=== PATIENT | female | born 1980 | race Caucasian/White ===

== ENCOUNTER 2016-09-25 01:40 | Emergency (ER) | payer OTHER ==
[~2016-09-25] VITALS: Ht 167.6 cm; Wt 57.7 kg
[~2016-09-25 01:40] MED LIST: MTR600X PO; OXYC5TAB PO; PRENTAB26 PO; RANI300T2 PO
[2016-09-25 01:50] VITALS: TEMP 36.7; Ht 167.6 cm; Wt 57.7 kg
[2016-09-25] MEDS ORDERED: MULT-506 PO (02:14)
[2016-09-25] MEDS ORDERED: PROG100S PV (02:17)
[2016-09-25] MEDS ORDERED: SODIUM CHLORIDE 0.9% 1000ML 1,000 ML IV STA (02:25)
--- NOTE | 2016-09-25 02:59 | EMERGENCY ROOM VISIT NOTE ---
History Report prepared by Yolis: Alize Palomino Under the Supervision of: Dr. Radha Nix M.D. First contact with patient: 02:12 Chief Complaint: ABDOMINAL PAIN Stated Complaint: SEVERE ABD PAIN History of Present Illness The patient is a 35 year old female who presents to the Emergency Room with complaints of intermittent, worsening upper abdominal pain starting this morning. The pain woke her up from sleep. She describes the pain as an ache. She reports indigestion. The patient had a vomiting episode this morning which she suspects was from the pain. She has sharp pain with deep breathing in the upper abdomen and lower chest. She also reports abdominal distention. She also complains of left shoulder pain. She denies eating any spicy foods but recently ate some fatty foods. She denies fevers, chills, urinary symptoms, or any other complaints. She has a history of ectopic but denies any similar symptoms today. She had an IVF 5 days ago. She was started on Lovenox prophylactic for 7 days. She has a history of factor V. She denies any history of gallbladder disease, cholecystectomy, or appendectomy. She has a family history of pulmonary embolism but denies any personal history of blood clots. Source of History: patient Onset: this morning Position: abdomen (upper) Quality: ache Timing: intermittent, worsening Associated Symptoms: + vomiting, No fevers, No chills, No urinary symptoms Review of Systems See HPI for pertinent positives & negatives. A total of 10 systems reviewed and were otherwise negative. Past Medical & Surgical Medical Problems: (1) Factor V Leiden (2) Hemoperitoneum due to rupture of right tubal ectopic (3) Pelvic pain Surgical Problems: (1) History of delivery Family History Cancer FH: pulmonary embolism Gallbladder disease Hypertension Seizures Social History Smoking Status: Never Smoker Alcohol Use: none Drug Use: none Marital Status: Housing Status: lives with family Occupation Status: employed Current/Historical Medications Scheduled Enoxaparin (Lovenox), 40 MG SQ DAILY Estradiol (Estradiol), 2 MG PO BID Multivitamin (Multivitamin), 1 TAB PO DAILY Progesterone (Vaginal) (Endometrin), 1 SUPP PV TID Ranitidine Hcl (Zantac), 300 MG PO BID Scheduled PRN Hydrocodone/Acetaminophen 5MG/325MG ([place] 5MG/325MG), 1 TABLET PO Q6 PRN for Pain Allergies Coded Allergies: No Known Allergies (Unverified , 09/25/16) Physical Exam Vital Signs Date Time Temp Pulse Resp B/P (MAP) Pulse Ox O2 Delivery O2 Flow Rate FiO2 09/25/16 07:12 72 20 116/60 98 Room Air 09/25/16 06:42 75 16 95/52 98 Room Air 09/25/16 05:29 79 16 103/63 99 Room Air 09/25/16 04:30 78 16 95/54 97 Room Air 09/25/16 01:50 36.7 90 18 116/66 95 Room Air Physical Exam Vital signs reviewed. General: Well-appearing, in no significant distress. HEENT: No scleral icterus, PERRLA, neck supple. Atraumatic. Cardiovascular: Regular rate and rhythm, no extra sounds. Pulmonary: Clear to auscultation bilaterally, normal work of breathing. Abdomen: Soft, tenderness to the right upper quadrant, positive rebound, positive guarding, nondistended, positive bowel sounds. Musculoskeletal: Atraumatic, no peripheral edema. Neurologic: Patient awake alert and oriented x 3 Skin: Warm, dry, no rash Medical Decision & Procedures ER Provider Diagnostic Interpretation: CT results as stated below per my review and radiologist interpretation: US OB 1st TRIMESTER Nonspecific perihepatic free fluid. Sludge in a distended gallbladder. No gallbladder wall thickening. CBD is at the upper limits of normal in caliber measuring approximately 4-5 mm. No right renal hydronephrosis. Pancreas is unremarkable. Radiologist: Dominguez Pinon MD ADDENDUM- Added by Dominguez Pinon MD. On 09/25/2016 4:56 am (-0:700) Please note, initial report was typographically error. The following is the report for the obstetrical ultrasound. No gestational sac or intrauterine identified at this time. Blood flow is seen in both ovaries. There are multiple complex cystic masses in each ovary. The largest on the right measures 2 cm and the largest on the left measures 3.7 cm. This is nonspecific. They could represent hemorrhagic cyst. Follow-up in 4 weeks to ensure resolution and excluse possibility of malignancy. Free fluid in the pelvis and upper abdomen. May be due to physiologic changes. May be due to underlying infection. This is a nonspecific finding. Laboratory Results 09/25/16 02:40 Red Blood Count 4.78, Mean Corpuscular Volume 86.0, Mean Corpuscular Hemoglobin 30.1, Mean Corpuscular Hemoglobin Concent 35.0, Mean Platelet Volume 10.3, Neutrophils (%) (Auto) 77.6, Lymphocytes (%) (Auto) 15.7, Monocytes (%) (Auto) 5.3, Eosinophils (%) (Auto) 0.7, Basophils (%) (Auto) 0.2, Neutrophils # (Auto) 10.04, Lymphocytes # (Auto) 2.03, Monocytes # (Auto) 0.68, Eosinophils # (Auto) 0.09, Basophils # (Auto) 0.03 09/25/16 06:19 09/25/16 02:40 Test 09/25/16 00:00 09/25/16 02:40 Urine Color YELLOW Urine Appearance CLOUDY (CLEAR) Urine pH 5.5 (4.5-7.5) Urine Specific Secor 1.024 (1.000-1.030) Urine Protein NEG (NEG) Urine Glucose (UA) NEG (NEG) Urine Ketones 1+ (NEG) Urine Occult Blood NEG (NEG) Urine Nitrite NEG (NEG) Urine Bilirubin NEG (NEG) Urine Urobilinogen NEG (NEG) Urine Leukocyte Esterase NEG (NEG) Urine WBC (Auto) 1-5 /hpf (0-5) Urine RBC (Auto) 10-30 /hpf (0-4) Urine Hyaline Casts (Auto) 1-5 /lpf (0-5) Urine Epithelial Cells (Auto) >30 /lpf (0-5) Urine Bacteria (Auto) NEG (NEG) Urine Crystals TALC (NONE PRSENT) White Blood Count 12.93 K/uL (4.8-10.8) Red Blood Count 4.78 M/uL (4.2-5.4) Hemoglobin 14.4 g/dL (12.0-16.0) Hematocrit 41.1 % (37-47) Mean Corpuscular Volume 86.0 fL (80-100) Mean Corpuscular Hemoglobin 30.1 pg (25-34) Mean Corpuscular Hemoglobin Concent 35.0 g/dl (32-36) Platelet Count 236 K/uL (130-400) Mean Platelet Volume 10.3 fL (7.4-10.4) Neutrophils (%) (Auto) 77.6 % Lymphocytes (%) (Auto) 15.7 % Monocytes (%) (Auto) 5.3 % Eosinophils (%) (Auto) 0.7 % Basophils (%) (Auto) 0.2 % Neutrophils # (Auto) 10.04 K/uL (1.4-6.5) Lymphocytes # (Auto) 2.03 K/uL (1.2-3.4) Monocytes # (Auto) 0.68 K/uL (0.11-0.59) Eosinophils # (Auto) 0.09 K/uL (0-0.5) Basophils # (Auto) 0.03 K/uL (0-0.2) RDW Standard Deviation 38.3 fL (36.4-46.3) RDW Coefficient of Variation 12.3 % (11.5-14.5) Immature Granulocyte % (Auto) 0.5 % Immature Granulocyte # (Auto) 0.06 K/uL (0.00-0.02) Prothrombin Time 10.5 SECONDS (9.0-12.0) Prothromb Time International Ratio 1.0 (0.9-1.1) Activated Partial Thromboplast Time 27.3 SECONDS (21.0-31.0) Partial Thromboplastin Ratio 1.1 Anion Gap 8.0 mmol/L (3-11) Est Creatinine Clear Calc Drug Dose 111.1 ml/min Estimated GFR () 134.3 Estimated GFR (Non- 115.8 BUN/Creatinine Ratio 21.6 (10-20) Calcium Level 8.6 mg/dl (8.5-10.1) Total Bilirubin 0.5 mg/dl (0.2-1) Direct Bilirubin 0.1 mg/dl (0-0.2) Aspartate Amino Transf (AST/SGOT) 10 U/L (15-37) Alanine Aminotransferase (ALT/SGPT) 17 U/L (12-78) Alkaline Phosphatase 47 U/L (45-117) Total Protein 6.6 gm/dl (6.4-8.2) Albumin 3.2 gm/dl (3.4-5.0) Laboratory results per my review. Medications Administered Medications (Trade) Dose Ordered Sig/Marquez Route Start Time Stop Time Status Last Admin Dose Admin Sodium Chloride 1,000 ml @ 999 mls/hr Q1H1M STAT IV 09/25/16 02:25 09/25/16 03:25 DC 09/25/16 02:55 999 MLS/HR Acetaminophen/ Hydrocodone Bitart ([place] 5/325mg Home Pack) 1 homepack UD ONCE PO 09/25/16 07:00 09/25/16 07:01 DC 09/25/16 07:12 1 HOMEPACK ED Course 0212: Past medical records reviewed. The patient was evaluated in room B04B. A complete history and physical examination was performed. 0225: Sodium Chloride 1000 ml @ 999 mls/hr IV 0439: I discussed the patient's case with Dr. Joshi, OB-TELE TECH with [facility]. 0700: Hydrocodone Bitart/Acetaminophen 1 home pack PO. Upon reevaluation, the patient appeared to have improvement of her symptoms. I discussed findings with her. She verbalized agreement of the treatment plan. The patient was discharged home. Medical Decision Medication Reconciliation: I attest that I have personally reviewed the patient' s current medication list. Blood Pressure Screening: Patient was found to have normal blood pressure on screening and does not require follow-up. Differential diagnosis: Etiologies such as appendicitis, diverticulitis, PUD, biliary pathology, UTI, pancreatitis, obstruction, mesenteric ischemia, aortic pathology, infections, inflammatory bowel disease, renal colic, ectopic , as well as others were entertained. This patient was evaluated and appeared to be in no significant distress. Physical examination reveals tenderness along the right upper quadrant. Ultrasounds of the right upper quadrant and pelvis were performed and reveal a moderate amount of free fluid in the abdomen. Laboratory work is fairly unrevealing. The patient was hydrated with normal saline solution. She denied the need for any analgesia at this time. H&H is trending downward however I feel this is likely dilutional. The patient had her eggs harvested 5 days prior to the implantation. I feel this is likely ovarian hyperstimulation syndrome. I do not feel that the patient is likely to have hemoperitoneum. Patient's vital signs have remained stable, her blood pressures do run low. She was informed of the findings. She was given a short prescription for [place] to be used as needed sparingly. She'll follow-up with [facility]. I did review the case with Dr. Joshi. She has requested that the patient contact [facility] first thing in the morning. They will need to see her in follow-up. She will return to the ER for worsening of symptoms or any medical concerns. Consults Time Called: [phone] Consulting Physician: Dr. Joshi, OB-TELE TECH with [facility] Returned Call: [phone] I discussed the patient's case with Dr. Joshi, OB-TELE TECH with [facility]. Impression Primary Impression: Ovarian hyperstimulation syndrome Scribe Attestation The scribe's documentation has been prepared under my direction and personally reviewed by me in its entirety. I confirm that the note above accurately reflects all work, treatment, procedures, and medical decision making performed by me. Departure Information Dispostion Home / Self-Care Prescriptions Hydrocodone/Acetaminophen 5MG/325MG ([place] 5MG/325MG) Tab 1 TABLET PO Q6 Y for Pain, #14 TAB Prov: Radha Nix M.D. 09/25/16 Referrals No Doctor, Assigned (PCP) Josiah Daniels M.D. Forms Call Back Authorization, HOME CARE DOCUMENTATION FORM, IMPORTANT VISIT INFORMATION Patient Instructions [facility] Additional Instructions Diagnosis: Ovarian hyperstimulation syndrome. [place] one tablet every 6 hours as needed for severe pain. Drink plenty of clear fluids. Contact [facility] first thing this morning for further management. If you are unable to see them within the next several days, please contact your local RECYCLING ASSISTANT, Dr. Ortega for short-term follow-up. Return to the emergency department for worsening of symptoms or any medical concerns.
[2016-09-25 03:26] LABS: BASO % 0.2 %; BASO ABS # 0.03 K/uL (0-0.2); COMPLETE YES; EOS % 0.7 %; HEMATOCRIT 41.1 % (37-47); IG% 0.5 %; LYMPH % 15.7 %; LYMPH ABS # 2.03 K/uL (1.2-3.4); MEAN CORPUSCULAR HEMOGLOBIN 30.1 pg (25-34); MEAN PLATELET VOLUME 10.3 fL (7.4-10.4); MONO % 5.3 %; NEUT % 77.6 %; PLATELET COUNT 236 K/uL (130-400); RED BLOOD COUNT 4.78 M/uL (4.2-5.4); WHITE BLOOD COUNT 12.93 K/uL (4.8-10.8)
[2016-09-25 03:43] LABS: BUN/CREATININE RATIO 21.6 (10-20); CREATININE 0.65 mg/dl (0.60-1.20); POTASSIUM 3.8 mmol/L (3.5-5.1)
[2016-09-25 03:44] LABS: PARTIAL THROMBOPLASTIN RATIO 1.1; PROTHROMBIN TIME (PATIENT) 10.5 SECONDS (9.0-12.0)
[2016-09-25 03:54] LABS: CALCIUM 8.6 mg/dl (8.5-10.1)
[2016-09-25 04:45] LABS: URINE APPEARANCE CLOUDY (CLEAR); URINE BILIRUBIN NEG (NEG); URINE COLOR YELLOW; URINE EPITHELIAL CELL AUTO >30 /lpf (0-5); URINE NITRITE NEG (NEG); URINE PH 5.5 (4.5-7.5); URINE SPECIFIC GRAVITY 1.024 (1.000-1.030); UROBILINOGEN NEG (NEG); ZZUR CULT IF INDIC CLEAN CATCH NO
[2016-09-25 04:51] LABS: MANUAL MICROSCOPIC REQUIRED? NO; REVIEW REQ? YES
[2016-09-25 06:28] LABS: HEMATOCRIT 36.5 % (37-47)
--- NOTE | 2016-09-25 06:56 | DIAGNOSTIC IMAGING REPORT ---
BILIARY ULTRASOUND CLINICAL HISTORY: RUQ abd pain, tender COMPARISON STUDY: No previous studies for comparison. FINDINGS: The pancreas appears sonographically normal. The liver appears sonographically normal. No gallstones are visualized. There is minimal sludge in the gallbladder.. There is no ductal dilatation. The common bile duct measures 4.6 cm. There is perihepatic fluid. There is no right-sided hydronephrosis. IMPRESSION: 1. Minimal sludge within the gallbladder 2. Unexplained free fluid surrounding the liver 3. No evidence of ductal dilatation. Electronically signed by: Lopez Quigley M.D. 09/25/2016 6:55 AM Dictated Date/Time: 09/25/2016 6:53 AM
[2016-09-25] MEDS ORDERED: HYDR-5688 PO (06:57)
[2016-09-25] MEDS ORDERED: NORCO 5/325MG HOME PACK PO ONE (07:00)
[2016-09-25 07:12] VITALS: BP 116/60; PULSE 72; O2SAT 98
--- NOTE | 2016-09-25 07:17 | DIAGNOSTIC IMAGING REPORT ---
PELVIC ULTRASOUND CLINICAL HISTORY: recent IVF, pelvis pain COMPARISON STUDY: Pelvic ultrasound 05/06/2015. FINDINGS: The uterus is retroflexed. The endometrial stripe measures up to 2 cm in thickness. No intrauterine gestational sac is identified. Small to moderate amount pelvic free fluid. Both ovaries are enlarged and contain multiple complex and simple cysts. However, there is normal color-flow within the bilateral ovaries. The right ovary measures 5.7 x 5.6 x 3.0 cm and the left ovary measures 8.3 x 9.6 x 6.6 cm. Largest complex cyst is seen within the left ovary measures 3.7 cm. Fluid extends into the right upper quadrant. No additional adnexal masses identified. IMPRESSION: 1. Endometrial stripe measures 2 cm in thickness. No intrauterine gestational sac is identified. If the patient has a positive test, then this could represent an early intrauterine , nonvisualized ectopic , or recent spontaneous . Follow-up pelvic ultrasound and/or beta-hCG is recommended. 2. Enlarged ovaries containing multiple simple and complex cysts with a small to moderate amount of fluid within the abdomen and pelvis. This favors hyperstimulation ovarian syndrome. Electronically signed by: Steven Pichardo M.D. 09/25/2016 7:16 AM Dictated Date/Time: 09/25/2016 7:10 AM
[2016-11-02] MEDS ORDERED: ENOX40IN SQ (02:16)
[2016-11-02] MEDS ORDERED: ESTR2TAB PO (02:16)
== END 2016-09-25 07:19 | disposition home or self-care (01) ==
LOC: C.EDB 01:40
DX: N98.1 Hyperstimulation of ovaries (principal); M25.512 Pain in left shoulder; D68.51 Activated protein C resistance; Z80.9 Family history of malignant neoplasm, unspecified; Z82.49 Family history of ischemic heart disease and other diseases of the circulatory system; Z82.0 Family history of epilepsy and other diseases of the nervous system; Z79.899 Other long term (current) drug therapy

== ENCOUNTER 2016-10-12 16:25 | Emergency (ER) | payer OTHER ==
[~2016-10-12] VITALS: Ht 165.1 cm; Wt 60.1 kg
[~2016-10-12 16:25] MED LIST changes: +HYDR-5688 PO; -MTR600X PO; +MULT-506 PO; -OXYC5TAB PO; -PRENTAB26 PO; +PROG100S PV
[2016-10-12 16:36] VITALS: TEMP 36.9; Ht 165.1 cm; Wt 60.1 kg
[2016-10-12 19:00] VITALS: BP 131/66
--- NOTE | 2016-10-12 19:19 | EMERGENCY ROOM VISIT NOTE ---
History Report prepared by Yolis: Jessica Villa Under the Supervision of: Dr. Efrain Martinez D.O. First contact with patient: 18:55 Chief Complaint: REFERRED BY DOCTOR Stated Complaint: DR. JACOBO PT EVALUATED TO R/O PE - PAIN IN L LUNG History of Present Illness The patient is a 35 year old female who presents to the Emergency Room with complaints of intermittent sharp left sided abdominal pain beginning today. The patient states that she sent an email to the nurse at her PCPs office after the pain persisted. She notes that she was told to come in to the ED to rule out a PE. She reports that her pain is worsened with deep inhalation and sneezing. She notes that she is 6 weeks and had OHSS 2 weeks ago and had 1.5L of fluid drained vaginally. The patient denies any vaginal bleeding, vaginal pain, pelvic pain, shortness of breath, cough, fever, chills, and leg swelling. She states that she is on Lovenox and has a history of factor 5 Leiden. She notes that her father has a history of PE. Source of History: patient Onset: today Position: abdomen Quality: sharp Timing: intermittent Modifying Factors (Worsening): breathing, other (sneezing) Associated Symptoms: No fevers, No chills, No cough, No SOB Note: The patient denies any vaginal bleeding, vaginal pain, pelvic pain, and leg swelling. Review of Systems See HPI for pertinent positives & negatives. A total of 10 systems reviewed and were otherwise negative. Past Medical & Surgical Medical Problems: (1) Factor V Leiden (2) Hemoperitoneum due to rupture of right tubal ectopic (3) Pelvic pain Surgical Problems: (1) History of delivery Family History Cancer FH: pulmonary embolism Gallbladder disease Hypertension Seizures Social History Smoking Status: Never Smoker Alcohol Use: none Drug Use: none Marital Status: Housing Status: lives with family Occupation Status: employed Current/Historical Medications Scheduled Enoxaparin (Lovenox), 40 MG SQ DAILY Estradiol (Estradiol), 2 MG PO BID Multivit/Min/Iron/Fol Ac/Pren ( Vitamin), 1 TAB PO DAILY Progesterone (Vaginal) (Endometrin), 1 SUPP PV TID Allergies Coded Allergies: No Known Allergies (Unverified , 09/25/16) Physical Exam Vital Signs Date Time Temp Pulse Resp B/P (MAP) Pulse Ox O2 Delivery O2 Flow Rate FiO2 10/12/16 21:52 84 18 100 10/12/16 19:00 77 18 131/66 99 Room Air 10/12/16 16:36 36.9 97 20 117/67 93 Room Air Physical Exam GENERAL: Patient is awake, alert, and in no acute distress. Patient is resting comfortably and showing no signs of anxiety EYES: The conjunctivae are clear. The pupils are round and reactive. EARS, NOSE, MOUTH AND THROAT: The nose is without any evidence of any deformity. Mucous membranes are moist tongue is midline NECK: The neck is nontender and supple. RESPIRATORY: Normal respiratory effort is noted there is no evidence of wheezing rhonchi or rales CARDIOVASCULAR: Regular rate and rhythm noted there no murmurs rubs or gallops normal S1 normal S2 GASTROINTESTINAL: The abdomen is soft. Bowel sounds are present in all quadrants. Abdomen is nontender MUSCULOSKELETAL/EXTREMITIES: There is no evidence of gross deformity full range of motion is noted in the hips and shoulders SKIN: There is no obvious evidence of any rash. There are no petechiae, pallor or cyanosis noted. No calf tenderness was noted NEUROLOGIC: Patient is awake alert and oriented x3 Medical Decision & Procedures ER Provider Diagnostic Interpretation: Radiology results as stated below per my review and radiologist interpretation: CHEST ONE VIEW PORTABLE FINDINGS: The heart is normal in size. There is no failure. There is no focal pulmonary consolidation. There is no pneumothorax. There is a small right pleural effusion.[ IMPRESSION: Small right pleural effusion. No evidence of focal pulmonary consolidation Electronically signed by: Lopez Quigley M.D. 10/12/2016 7:30 PM Dictated Date/Time: 10/12/2016 7:29 PM ULTRASOUND VENOUS DOPPLER LWR EXT BILA FINDINGS: Real-time and color flow Doppler imaging were performed. Flow was seen within the femoral, popliteal and calf veins with no intraluminal thrombus demonstrated. The saphenous vein is patent. IMPRESSION: No evidence of lower extremity DVT. Electronically signed by: Lopez Quigley M.D. 10/12/2016 8:25 PM Dictated Date/Time: 10/12/2016 8:24 PM Laboratory Results 10/12/16 19:12 Red Blood Count 4.01, Mean Corpuscular Volume 88.3, Mean Corpuscular Hemoglobin 30.2, Mean Corpuscular Hemoglobin Concent 34.2, Mean Platelet Volume 9.4, Neutrophils (%) (Auto) 71.3, Lymphocytes (%) (Auto) 21.2, Monocytes (%) (Auto) 5.7, Eosinophils (%) (Auto) 1.0, Basophils (%) (Auto) 0.4, Neutrophils # (Auto) 8.13, Lymphocytes # (Auto) 2.41, Monocytes # (Auto) 0.65, Eosinophils # (Auto) 0.11, Basophils # (Auto) 0.04 10/12/16 19:12 Test 10/12/16 19:12 10/12/16 19:18 10/12/16 19:40 White Blood Count 11.39 K/uL (4.8-10.8) Red Blood Count 4.01 M/uL (4.2-5.4) Hemoglobin 12.1 g/dL (12.0-16.0) Hematocrit 35.4 % (37-47) Mean Corpuscular Volume 88.3 fL (80-100) Mean Corpuscular Hemoglobin 30.2 pg (25-34) Mean Corpuscular Hemoglobin Concent 34.2 g/dl (32-36) Platelet Count 280 K/uL (130-400) Mean Platelet Volume 9.4 fL (7.4-10.4) Neutrophils (%) (Auto) 71.3 % Lymphocytes (%) (Auto) 21.2 % Monocytes (%) (Auto) 5.7 % Eosinophils (%) (Auto) 1.0 % Basophils (%) (Auto) 0.4 % Neutrophils # (Auto) 8.13 K/uL (1.4-6.5) Lymphocytes # (Auto) 2.41 K/uL (1.2-3.4) Monocytes # (Auto) 0.65 K/uL (0.11-0.59) Eosinophils # (Auto) 0.11 K/uL (0-0.5) Basophils # (Auto) 0.04 K/uL (0-0.2) RDW Standard Deviation 39.5 fL (36.4-46.3) RDW Coefficient of Variation 12.2 % (11.5-14.5) Immature Granulocyte % (Auto) 0.4 % Immature Granulocyte # (Auto) 0.05 K/uL (0.00-0.02) Prothrombin Time 10.1 SECONDS (9.0-12.0) Prothromb Time International Ratio 0.9 (0.9-1.1) Activated Partial Thromboplast Time 26.9 SECONDS (21.0-31.0) Partial Thromboplastin Ratio 1.0 Anion Gap 7.0 mmol/L (3-11) Est Creatinine Clear Calc Drug Dose 127.4 ml/min Estimated GFR () 141.0 Estimated GFR (Non- 121.7 BUN/Creatinine Ratio 19.0 (10-20) Calcium Level 9.0 mg/dl (8.5-10.1) Total Bilirubin 0.2 mg/dl (0.2-1) Direct Bilirubin < 0.1 mg/dl (0-0.2) Aspartate Amino Transf (AST/SGOT) 16 U/L (15-37) Alanine Aminotransferase (ALT/SGPT) 45 U/L (12-78) Alkaline Phosphatase 84 U/L (45-117) Troponin I < 0.015 ng/ml (0-0.045) Total Protein 7.3 gm/dl (6.4-8.2) Albumin 3.5 gm/dl (3.4-5.0) Lipase 154 U/L (73-393) Bedside D-Dimer > 450 ng/mlFEU (0-450) Urine Color YELLOW Urine Appearance CLEAR (CLEAR) Urine pH 6.0 (4.5-7.5) Urine Specific [place] 1.021 (1.000-1.030) Urine Protein NEG (NEG) Urine Glucose (UA) NEG (NEG) Urine Ketones NEG (NEG) Urine Occult Blood NEG (NEG) Urine Nitrite NEG (NEG) Urine Bilirubin NEG (NEG) Urine Urobilinogen NEG (NEG) Urine Leukocyte Esterase NEG (NEG) Laboratory results per my review. Medications Administered Medications (Trade) Dose Ordered Sig/Marquez Route Start Time Stop Time Status Last Admin Dose Admin Enoxaparin Sodium (Lovenox Inj) 60 mg NOW ONCE SQ 10/12/16 21:15 10/12/16 21:16 DC 10/12/16 21:15 60 MG Enoxaparin Sodium (Lovenox Inj) 60 mg NOW ONCE SQ 10/12/16 21:30 10/12/16 21:31 DC 10/12/16 21:30 60 MG ECG Indication: chest pain Rate (beats per minute): 71 Rhythm: normal sinus Findings: no ectopy, other (no ST segment abnormalities) Comparison ECG Date: no prior available ED Course 1854: The patient was evaluated in room B12B. A complete history and physical examination were performed. 2107: I discussed the patient's case with Dr. Crain who is on for Dr. Gamboa. He recommended CT of the chest. 2114: Lovenox Inj 60mg SQ. 2129: Lovenox Inj 60mg SQ. 2129: I reevaluated the patient. She refused CT. 2134: Upon reevaluation, the patient is doing well. I discussed the results and treatment plan with the patient. She verbalized agreement of the treatment plan. The patient was discharged home. Medical Decision Differential diagnosis: Etiologies such as cardiac ischemia, aortic dissection, pulmonary embolism, pneumonia, pneumothorax, musculoskeletal, infections, pericarditis, myocarditis , esophageal rupture, gastrointestinal, as well as others were entertained. Medication Reconciliation: I attest that I have personally reviewed the patient' s current medications list. Patient was found to have a slightly elevated blood pressure due to circumstances. I do not believe that the patient requires hypertension monitoring. The patient is a 35-year-old female who presented to the emergency department for an evaluation of possible pulmonary embolism. The patient was recent diagnosis with hyperstimulation syndrome. She had fertility drugs which resulted in a twin gestation at approximate 6 weeks at this time. She started having left-sided pleuritic chest pain recently. She called her primary DIRECTOR CORPORATE SECURITY physician and was told to come to the emergency department for further evaluation. The patient had an elevated d-dimer but she is not tachycardic or hypoxic. Her Dopplers of the lower extremity do not reveal any signs of definite venous thromboembolic disease. The patient has significant risk factors for pulmonary embolism and at this time I have recommended that she have a CT the chest to rule out pulmonary embolism. I discussed her case with the covering DIRECTOR CORPORATE SECURITY physician for the patient's primary DIRECTOR CORPORATE SECURITY physician and she also has recommended a CT the chest. The patient is still very unsure and does not wish to have a CT the chest because of the radiation risk. At this time I do see the patient's point of view and I'm very concerned as well with the amount of radiation but I also feel that the benefit from diagnosing the pulmonary embolism would be better than the risk of missing this diagnosis. The patient has a follow-up appointment with her primary DIRECTOR CORPORATE SECURITY physician the morning. For this reason I recommended starting the patient on therapeutic dosing of Lovenox to cover for a pulmonary embolism. She is already taking a prophylaxis treatment of Lovenox because of her past medical history as well as her current medical condition. She was given Lovenox 60 milligrams in the emergency department and also given a dose to take home to take at 930 in the morning. She was also encouraged to follow-up with her primary DIRECTOR CORPORATE SECURITY physician tomorrow as scheduled and discuss further treatment options or possibly having the CT the chest done tomorrow. She was also encouraged to return to emergency department immediately if symptoms change worsen or the need arises. Consults Time Called: 2104 Consulting Physician: Dr. Crain Returned Call: 2107 I discussed the patient's case with Dr. Crain who is on for Dr. Gamboa. He recommended CT of the chest. Impression Primary Impression: Pleurisy Additional Impression: Pleuritic chest pain Scribe Attestation The scribe's documentation has been prepared under my direction and personally reviewed by me in its entirety. I confirm that the note above accurately reflects all work, treatment, procedures, and medical decision making performed by me. Departure Information Dispostion Home / Self-Care Referrals No Doctor, Assigned (PCP) Forms HOME CARE DOCUMENTATION FORM, IMPORTANT VISIT INFORMATION, WORK / SCHOOL INSTRUCTIONS Patient Instructions ED Chest Pain Atypical Unkn Cause, My [facility], Pleurisy Additional Instructions Follow-up with your DIRECTOR CORPORATE SECURITY physician in the morning. Rest and avoid any strenuous activity. Return to the emergency Department immediately if symptoms change worsen or the need arises. I would also recommend taking an increased dose of Lovenox tomorrow morning at 9 a.m.. Problem Qualifiers
--- NOTE | 2016-10-12 19:31 | DIAGNOSTIC IMAGING REPORT ---
CHEST ONE VIEW PORTABLE CLINICAL HISTORY: Left-sided chest pain COMPARISON STUDY: No previous studies for comparison. FINDINGS: The heart is normal in size. There is no failure. There is no focal pulmonary consolidation. There is no pneumothorax. There is a small right pleural effusion.[ IMPRESSION: Small right pleural effusion. No evidence of focal pulmonary consolidation Electronically signed by: Lopez Quigley M.D. 10/12/2016 7:30 PM Dictated Date/Time: 10/12/2016 7:29 PM
[2016-10-12 19:46] LABS: BASO % 0.4 %; BASO ABS # 0.04 K/uL (0-0.2); COMPLETE YES; HEMATOCRIT 35.4 % (37-47); IG% 0.4 %; LYMPH % 21.2 %; LYMPH ABS # 2.41 K/uL (1.2-3.4); MEAN CELL VOLUME 88.3 fL (80-100); MEAN CORPUSCULAR HEMOGLOBIN 30.2 pg (25-34); MEAN CORPUSCULAR HGB CONC 34.2 g/dl (32-36); MEAN PLATELET VOLUME 9.4 fL (7.4-10.4); MONO % 5.7 %; NEUT % 71.3 %; PLATELET COUNT 280 K/uL (130-400); RED BLOOD COUNT 4.01 M/uL (4.2-5.4); WHITE BLOOD COUNT 11.39 K/uL (4.8-10.8)
[2016-10-12 19:50] LABS: URINE APPEARANCE CLEAR (CLEAR); URINE BILIRUBIN NEG (NEG); URINE COLOR YELLOW; URINE NITRITE NEG (NEG); URINE SPECIFIC GRAVITY 1.021 (1.000-1.030); UROBILINOGEN NEG (NEG)
[2016-10-12 19:52] LABS: MANUAL MICROSCOPIC REQUIRED? NO; REVIEW REQ? NO
[2016-10-12 19:58] LABS: INR 0.9 (0.9-1.1); PROTHROMBIN TIME (PATIENT) 10.1 SECONDS (9.0-12.0)
[2016-10-12 20:03] LABS: ALT/SGPT 45 U/L (12-78); AST/SGOT 16 U/L (15-37); BLOOD UREA NITROGEN 11 mg/dl (7-18); CARBON DIOXIDE 28 mmol/L (21-32); CHLORIDE 103 mmol/L (98-107); CREATININE 0.56 mg/dl (0.60-1.20); GLUCOSE 79 mg/dl (70-99); POTASSIUM 3.3 mmol/L (3.5-5.1); SODIUM 138 mmol/L (136-145)
[2016-10-12 20:08] LABS: ALKALINE PHOSPHATASE 84 U/L (45-117)
--- NOTE | 2016-10-12 20:26 | DIAGNOSTIC IMAGING REPORT ---
ULTRASOUND VENOUS DOPPLER LWR EXT BILA CLINICAL HISTORY: Leg swelling and left-sided chest pain. Right pleural effusion. . COMPARISON STUDY: No previous studies for comparison. FINDINGS: Real-time and color flow Doppler imaging were performed. Flow was seen within the femoral, popliteal and calf veins with no intraluminal thrombus demonstrated. The saphenous vein is patent. IMPRESSION: No evidence of lower extremity DVT. Electronically signed by: Lopez Quigley M.D. 10/12/2016 8:25 PM Dictated Date/Time: 10/12/2016 8:24 PM
[2016-10-12] MEDS ORDERED: ENOXAPARIN 60 MG/0.6 ML SYR SQ ONE ×2 (21:15→21:30)
[2016-10-12 21:52] VITALS: PULSE 84; O2SAT 100
[2016-11-02] MEDS ORDERED: ESTR2TAB PO (02:16)
[2016-11-02] MEDS ORDERED: ENOX40IN SQ (02:16)
== END 2016-10-12 21:53 | disposition home or self-care (01) ==
LOC: C.EDB 16:26
DX: R09.1 Pleurisy (principal); R07.81 Pleurodynia; D68.51 Activated protein C resistance; Z79.899 Other long term (current) drug therapy; Z80.9 Family history of malignant neoplasm, unspecified; Z83.79 Family history of other diseases of the digestive system; Z82.49 Family history of ischemic heart disease and other diseases of the circulatory system; Z82.0 Family history of epilepsy and other diseases of the nervous system

== ENCOUNTER 2016-10-19 06:50 | Emergency (ER) | payer OTHER ==
[~2016-10-19] VITALS: Ht 167.6 cm; Wt 58.2 kg
[~2016-10-19 06:50] MED LIST changes: -HYDR-5688 PO; -MULT-506 PO; -RANI300T2 PO
[2016-10-19 06:52] VITALS: TEMP 36.7; Ht 167.6 cm; Wt 58.2 kg
[2016-10-19] MEDS ORDERED: SODIUM CHLORIDE 0.9% 1000ML 1,000 ML IV STA (07:09)
--- NOTE | 2016-10-19 07:25 | EMERGENCY ROOM VISIT NOTE ---
History Report prepared by Yolis: Fatoumata Hale Under the Supervision of: Dr. Radha Nix M.D. First contact with patient: 06:56 Chief Complaint: CHEST PAIN Stated Complaint: CHEST PAIN,HURTS WHEN I BREATHE Nursing Triage Summary: pt c/ochets pain started last night reports she was seen here last week refused ct scan for pe study because she is . pain worsened last night History of Present Illness The patient is a 35 year old female who presents to the Emergency Room with complaints of worsening right-sided chest pain that started yesterday. The chest pain is worse when she turns to her right side or takes a deep breath. The pain occasionally radiates into her right shoulder and her back. The patient states that she was at [employer] yesterday with her kids when she developed right-sided chest pain. She originally thought the pain was secondary to GERD so she took TUMS. The patient states that when she got home, she sat on the couch and watched TV with her kids but the pain did not subside. She went to bed and slept with a slight incline in an effort to decrease her symptoms if they were secondary to GERD. However, the patient woke up this morning and was still experiencing the right-sided chest pain. She does not feel short of breath but states that she cannot take a full breath secondary to the pain. She denies abdominal pain and vaginal bleeding or discharge. The patient was evaluated in the ED last week for sharp left lower chest pain that was worse when she took deep breaths. The patient has factor V Leiden but she is not sure if she is heterozygous or homozygous. There was concern for a pulmonary embolism at that time but since the patient is 7 weeks she decided not to have a CT scan done. She followed up with her OB-DATA PROCESSING CONTROL CLERK and they told her to come back to the ED if the pain worsened. The patient is on 40 mg of Lovenox once a day. The patient adds that she has fluid in her right lung that was diagnosed by a chest x-ray and an ultrasound. The patient denies any previous gallbladder issues. Source of History: patient Onset: yesterday Position: chest (right) Quality: other (right-sided chest pain) Timing: worsening Modifying Factors (Worsening): breathing (deep), movement (turning to the right) Associated Symptoms: + SOB (secondary to not being able to take a deep breath with the pain), No abdominal pain Note: no vaginal bleeding or discharge Review of Systems See HPI for pertinent positives & negatives. A total of 10 systems reviewed and were otherwise negative. Past Medical & Surgical Medical Problems: (1) Factor V Leiden (2) Hemoperitoneum due to rupture of right tubal ectopic (3) Pelvic pain Surgical Problems: (1) History of delivery Family History Cancer FH: pulmonary embolism Gallbladder disease Hypertension Seizures Social History Smoking Status: Never Smoker Alcohol Use: none Drug Use: none Marital Status: Housing Status: lives with family Occupation Status: employed Current/Historical Medications Scheduled Enoxaparin (Lovenox), 40 MG SQ DAILY Estradiol (Estradiol), 2 MG PO BID Multivit/Min/Iron/Fol Ac/Pren ( Vitamin), 1 TAB PO DAILY Progesterone (Vaginal) (Endometrin), 1 SUPP PV TID Allergies Coded Allergies: No Known Allergies (Unverified , 09/25/16) Physical Exam Vital Signs Date Time Temp Pulse Resp B/P (MAP) Pulse Ox O2 Delivery O2 Flow Rate FiO2 10/19/16 09:05 71 18 107/57 99 10/19/16 08:06 79 18 108/61 97 Room Air 10/19/16 07:04 77 10/19/16 06:52 36.7 93 18 109/62 98 Room Air Physical Exam Vital signs reviewed. General: Well-appearing female, in no significant distress. HEENT: No scleral icterus, PERRLA, neck supple. Atraumatic. Cardiovascular: Regular rate and rhythm, no extra sounds. Pulmonary: Clear to auscultation bilaterally, normal work of breathing. Abdomen: Soft, nontender, mildly distended, positive bowel sounds. Musculoskeletal: Atraumatic, no reproducible chest wall tenderness, no peripheral edema. Neurologic: Patient awake alert and oriented x 3, full strength in all 4 extremities. Cranial nerves 2 through 12 grossly intact. Skin: Warm, dry, no rash Medical Decision & Procedures ER Provider Diagnostic Interpretation: CT results as stated below per my review and radiologist interpretation: (CHEST FOR PE) ANGIO WITH FINDINGS: CTA: There is adequate opacification of the pulmonary arteries to the level of the subsegmental branches without convincing evidence of acute pulmonary embolism. The thoracic aorta is normal in course and caliber. Heart size is normal. CT CHEST: No axillary or mediastinal adenopathy by CT size criteria. There is a pnhdc-[id number] size right pleural effusion present. Minimal adjacent right basilar consolidation suggesting atelectasis is also present. There is no pneumothorax. The central airways are patent. The imaged upper abdominal structures are normal. The osseous structures appear intact. IMPRESSION: 1. No acute aortic pathology or evidence of pulmonary thromboembolic disease. 2. Ysyhc-[id number] sized right pleural effusion with minimal adjacent right basilar consolidation suggesting atelectasis. The above report was generated using voice recognition software. It may contain grammatical, syntax or spelling errors. Electronically signed by: Terell Whitlock M.D. 10/19/2016 8:16 AM Dictated Date/Time: 10/19/2016 8:11 AM Laboratory Results 10/19/16 07:05 Red Blood Count 4.13, Mean Corpuscular Volume 88.1, Mean Corpuscular Hemoglobin 29.8, Mean Corpuscular Hemoglobin Concent 33.8, Mean Platelet Volume 9.7, Neutrophils (%) (Auto) 80.4, Lymphocytes (%) (Auto) 13.5, Monocytes (%) (Auto) 4.8, Eosinophils (%) (Auto) 0.5, Basophils (%) (Auto) 0.2, Neutrophils # (Auto) 10.19, Lymphocytes # (Auto) 1.71, Monocytes # (Auto) 0.61, Eosinophils # (Auto) 0.06, Basophils # (Auto) 0.02 10/19/16 07:05 Test 10/19/16 07:05 10/19/16 07:16 White Blood Count 12.66 K/uL (4.8-10.8) Red Blood Count 4.13 M/uL (4.2-5.4) Hemoglobin 12.3 g/dL (12.0-16.0) Hematocrit 36.4 % (37-47) Mean Corpuscular Volume 88.1 fL (80-100) Mean Corpuscular Hemoglobin 29.8 pg (25-34) Mean Corpuscular Hemoglobin Concent 33.8 g/dl (32-36) Platelet Count 230 K/uL (130-400) Mean Platelet Volume 9.7 fL (7.4-10.4) Neutrophils (%) (Auto) 80.4 % Lymphocytes (%) (Auto) 13.5 % Monocytes (%) (Auto) 4.8 % Eosinophils (%) (Auto) 0.5 % Basophils (%) (Auto) 0.2 % Neutrophils # (Auto) 10.19 K/uL (1.4-6.5) Lymphocytes # (Auto) 1.71 K/uL (1.2-3.4) Monocytes # (Auto) 0.61 K/uL (0.11-0.59) Eosinophils # (Auto) 0.06 K/uL (0-0.5) Basophils # (Auto) 0.02 K/uL (0-0.2) RDW Standard Deviation 38.4 fL (36.4-46.3) RDW Coefficient of Variation 11.9 % (11.5-14.5) Immature Granulocyte % (Auto) 0.6 % Immature Granulocyte # (Auto) 0.07 K/uL (0.00-0.02) Anion Gap 8.0 mmol/L (3-11) Est Creatinine Clear Calc Drug Dose 115.6 ml/min Estimated GFR () 135.6 Estimated GFR (Non- 117.0 BUN/Creatinine Ratio 14.9 (10-20) Calcium Level 8.8 mg/dl (8.5-10.1) Total Bilirubin 0.5 mg/dl (0.2-1) Direct Bilirubin 0.1 mg/dl (0-0.2) Aspartate Amino Transf (AST/SGOT) 17 U/L (15-37) Alanine Aminotransferase (ALT/SGPT) 53 U/L (12-78) Alkaline Phosphatase 98 U/L (45-117) Total Protein 6.9 gm/dl (6.4-8.2) Albumin 3.3 gm/dl (3.4-5.0) Bedside Troponin I < 0.030 ng/ml (0-0.045) Laboratory results per my review. Medications Administered Medications (Trade) Dose Ordered Sig/Marquez Route Start Time Stop Time Status Last Admin Dose Admin Sodium Chloride 1,000 ml @ 200 mls/hr Q5H STAT IV 10/19/16 07:09 10/19/16 09:16 DC 10/19/16 07:23 200 MLS/HR ECG Indication: chest pain Rate (beats per minute): 84 Rhythm: normal sinus Findings: nonspecific-ST abn, no acute ischemic change, no ectopy Comparison ECG Date: 10/12/2016 Change: no significant change ED Course 0704: Past medical records reviewed. The patient was evaluated in room B5. A complete history and physical examination was performed. 0709: Ordered Sodium Chloride 1000 ml @ 200 mls/hr IV 0851: Upon reevaluation, the patient appeared to have improvement of her symptoms. I discussed findings with her. She is in agreement with the treatment plan. She verbalized agreement of the treatment plan. She was discharged home. Medical Decision Differential diagnoses includes acute coronary syndrome, pulmonary embolus, aortic dissection, musculoskeletal pain, pneumonia, pleural effusion, pneumothorax, gastritis, peptic ulcer disease. Medication Reconciliation: I attest that I have personally reviewed the patient' s current medication list. Blood Pressure Screening: Patient was found to have normal blood pressure on screening and does not require follow-up. This patient was evaluated and appeared to be in no significant distress. Physical examination is fairly unrevealing. Patient is suffering from a pleuritic type chest pain. She does have risk factors for PE including , factor V Leiden. As this has been ongoing, the patient was sent for CAT scan. Patient was made aware of the risks and benefits of the CAT scan for which she understands. CT scan reveals a right pleural effusion which is likely the source of the patient's pain. This has been a persistent finding. There is no evidence of PE. The patient was discharged and asked to use Tylenol as needed for pain. She is currently on prophylactic dosing of Lovenox for which she will discuss with her RESEARCH ADVISOR whether or not to continue. She will return to the ER for worsening of symptoms or any medical concerns. Impression Primary Impression: Pleuritic chest pain Additional Impressions: First trimester Pleural effusion Scribe Attestation The scribe's documentation has been prepared under my direction and personally reviewed by me in its entirety. I confirm that the note above accurately reflects all work, treatment, procedures, and medical decision making performed by me. Departure Information Dispostion Home / Self-Care Referrals No Doctor, Assigned (PCP) Forms HOME CARE DOCUMENTATION FORM, IMPORTANT VISIT INFORMATION Patient Instructions My [facility] Additional Instructions Diagnosis: Pleuritic chest pain, pleural effusion, first trimester Tylenol 650 mg every 6 hours as needed for pain. Follow-up with your RESEARCH ADVISOR this week for reevaluation and a discussion regarding your Lovenox therapy. Return to the emergency department for worsening of symptoms or any medical concerns. Problem Qualifiers
[2016-10-19 07:26] LABS: BASO % 0.2 %; BASO ABS # 0.02 K/uL (0-0.2); COMPLETE YES; EOS % 0.5 %; HEMATOCRIT 36.4 % (37-47); IG% 0.6 %; LYMPH % 13.5 %; LYMPH ABS # 1.71 K/uL (1.2-3.4); MEAN CELL VOLUME 88.1 fL (80-100); MEAN CORPUSCULAR HEMOGLOBIN 29.8 pg (25-34); MEAN CORPUSCULAR HGB CONC 33.8 g/dl (32-36); MEAN PLATELET VOLUME 9.7 fL (7.4-10.4); MONO % 4.8 %; NEUT % 80.4 %; PLATELET COUNT 230 K/uL (130-400); RED BLOOD COUNT 4.13 M/uL (4.2-5.4); WHITE BLOOD COUNT 12.66 K/uL (4.8-10.8)
[2016-10-19] MEDS ORDERED: OPTIRAY 320 IV PRN (07:30)
[2016-10-19 07:44] LABS: BUN/CREATININE RATIO 14.9 (10-20); CALCIUM 8.8 mg/dl (8.5-10.1); CREATININE 0.63 mg/dl (0.60-1.20); POTASSIUM 3.4 mmol/L (3.5-5.1)
--- NOTE | 2016-10-19 08:17 | DIAGNOSTIC IMAGING REPORT ---
(CHEST FOR PE) ANGIO WITH CT DOSE: 206.37 mGy.cm HISTORY: 35-year-old female presents with acute chest pain and difficulty breathing. TECHNIQUE: Multiple CTA images of the chest were obtained after the intravenous administration of 115 ml Optiray 320. Coronal and sagittal MIPS were obtained from the axial data set and were submitted for review. COMPARISON: Portable chest radiograph 10/12/2016. FINDINGS: CTA: There is adequate opacification of the pulmonary arteries to the level of the subsegmental branches without convincing evidence of acute pulmonary embolism. The thoracic aorta is normal in course and caliber. Heart size is normal. CT CHEST: No axillary or mediastinal adenopathy by CT size criteria. There is a ftrpy-hb-[id number] size right pleural effusion present. Minimal adjacent right basilar consolidation suggesting atelectasis is also present. There is no pneumothorax. The central airways are patent. The imaged upper abdominal structures are normal. The osseous structures appear intact. IMPRESSION: 1. No acute aortic pathology or evidence of pulmonary thromboembolic disease. 2. Izbii-vk-cvvzyzwf sized right pleural effusion with minimal adjacent right basilar consolidation suggesting atelectasis. The above report was generated using voice recognition software. It may contain grammatical, syntax or spelling errors. Electronically signed by: Terell Whitlock M.D. 10/19/2016 8:16 AM Dictated Date/Time: 10/19/2016 8:11 AM
[2016-10-19 09:05] VITALS: BP 107/57; PULSE 71; O2SAT 99
[2016-11-02] MEDS ORDERED: ENOX40IN SQ (02:16)
[2016-11-02] MEDS ORDERED: ESTR2TAB PO (02:16)
== END 2016-10-19 09:06 | disposition home or self-care (01) ==
LOC: C.EDB 06:51
DX: R07.9 Chest pain, unspecified (principal); Z34.01 Encounter for supervision of normal first pregnancy, first trimester; J90 Pleural effusion, not elsewhere classified; Z82.0 Family history of epilepsy and other diseases of the nervous system; Z82.49 Family history of ischemic heart disease and other diseases of the circulatory system

== ENCOUNTER 2016-11-02 16:47 | Emergency (ER) | payer OTHER ==
[~2016-11-02] VITALS: Ht 167.6 cm; Wt 59.0 kg
[~2016-11-02 16:47] MED LIST changes: +ENOX40IN SQ; +ESTR2TAB PO
[2016-11-02 16:54] VITALS: Ht 167.6 cm; Wt 59.0 kg
[2016-11-02 17:50] LABS: HEMATOCRIT 30.9 % (37-47)
[2016-11-02 17:57] LABS: URINE APPEARANCE CLEAR (CLEAR); URINE BILIRUBIN NEG (NEG); URINE COLOR YELLOW; URINE EPITHELIAL CELL AUTO 0-5 /lpf (0-5); URINE NITRITE NEG (NEG); URINE PH 7.5 (4.5-7.5); URINE SPECIFIC GRAVITY 1.007 (1.000-1.030); UROBILINOGEN NEG (NEG); ZZUR CULT IF INDIC CLEAN CATCH NO
[2016-11-02 18:15] LABS: MANUAL MICROSCOPIC REQUIRED? NO; REVIEW REQ? NO
--- NOTE | 2016-11-02 19:38 | DIAGNOSTIC IMAGING REPORT ---
ULTRASOUND OF THE PELVIS CLINICAL HISTORY: Vaginal bleeding. Reportedly 9 weeks . COMPARISON STUDY: No priors. TECHNIQUE: Real-time, grayscale, and color flow sonography of the pelvis is performed both transabdominally. Images are reviewed in the transverse and longitudinal planes. FINDINGS: Uterus: The gravid uterus is enlarged and heterogeneous Gestation: There are 2 live intrauterine gestations. These appear dichorionic diamniotic. Baby A has a crown-rump length measuring 2.52 cm, corresponding to an aspirated age of 9 weeks 2 days and the heart rate measuring 187 bpm. The crown length for baby B measures 2.44 cm, corresponding to estimated age of 9 weeks 1 day. The estimated heart rate is 172 bpm. There are 2 small subchorionic hemorrhages identified measuring up to 4.0 cm. Ovaries: The ovaries are enlarged. The right ovary measures 5.4 x 2.8 x 6.2 cm and the left ovary measures 9.0 x 4.9 x 10.2 cm. Numerous follicles are identified. Normal Doppler waveforms are shown within both ovaries. Pelvis: There is no free fluid in the cul-de-sac. No concerning adnexal lesion is seen. IMPRESSION: 1. There are live twin gestations with an estimated age of 9 weeks 2 days by crown-rump length measurement. 2. There are 2 small subchorionic hemorrhages identified as above. 3. The ovaries are enlarged. Normal Doppler flow is present within both ovaries. Electronically signed by: Iggy Brewster M.D. 11/02/2016 7:36 PM Dictated Date/Time: 11/02/2016 7:31 PM
[2016-11-02] MEDS ORDERED: PRENTAB26 PO (20:19)
--- NOTE | 2016-11-02 20:40 | EMERGENCY ROOM VISIT NOTE ---
History Report prepared by Yolis: Dudley Quan Under the Supervision of: Dr. Momo Oneill M.D. First contact with patient: 17:15 Chief Complaint: ED VAG BLEEDING Stated Complaint: BLEEDING- W/TWINS - 9 WKS History of Present Illness The patient is a 35 year old female who presents to the Emergency Room with complaints of persistent vaginal bleeding beginning shortly prior to arrival. She is 9 weeks with twins. She is on Lovenox for factor V. The patient states that she has gone through a few pads. She denies any abdominal pain. She notes that she has a history of placenta previa with her previous , but states that this began at 16 weeks. The patient denies any LOC, or lightheadedness. She notes that she currently feels very anxious. She currently has a little chest pain as well, which she states has been present for a while. Source of History: patient Onset: Shortly prior to arrival Position: other (vagina) Quality: other (bleeding) Timing: other (persistent) Associated Symptoms: + chest pain, No LOC Note: The patient denies any lightheadedness. Review of Systems See HPI for pertinent positives & negatives. A total of 10 systems reviewed and were otherwise negative. Past Medical & Surgical Medical Problems: (1) Factor V Leiden (2) Hemoperitoneum due to rupture of right tubal ectopic (3) Pelvic pain Surgical Problems: (1) History of delivery Family History Cancer FH: pulmonary embolism Gallbladder disease Hypertension Seizures Social History Smoking Status: Never Smoker Alcohol Use: none Drug Use: none Marital Status: Housing Status: lives with family Occupation Status: employed Current/Historical Medications Scheduled Enoxaparin (Lovenox), 40 MG SQ DAILY Estradiol (Estradiol), 2 MG PO DAILY Multivit/Min/Iron/Fol Ac/Pren ( Vitamin), 1 TAB PO DAILY Progesterone (Vaginal) (Endometrin), 1 SUPP PV BID Allergies Coded Allergies: No Known Allergies (Unverified , 09/25/16) Physical Exam Vital Signs Date Time Temp Pulse Resp B/P (MAP) Pulse Ox O2 Delivery O2 Flow Rate FiO2 11/02/16 20:56 36.9 85 16 116/62 97 11/02/16 18:12 85 16 116/62 97 Room Air 11/02/16 16:54 36.9 96 18 114/60 98 Room Air Physical Exam GENERAL: Patient is anxious appearing and in minimal distress. HEENT: No acute trauma, normocephalic atraumatic, mucous membranes moist, no nasal congestion, no scleral icterus. NECK: No stridor, no adenopathy, no meningismus, trachea is midline. LUNGS: No dyspnea. Clear to auscultation and equal bilaterally. No wheeze, no rhonchi. HEART: Regular rate and rhythm. No murmurs, rubs, gallops appreciated. ABDOMEN: Soft, nontender, bowel sounds positive, no masses appreciated, no peritonitis. BACK: No midline tenderness, no CVA tenderness EXTREMITIES: Normal motion all extremities, no cyanosis, no edema. NEUROLOGIC: Alert and oriented, no acute motor or sensory deficits, no focal weakness, cranial nerves grossly intact. SKIN: No rash, no jaundice, no diaphoresis. Medical Decision & Procedures ER Provider Diagnostic Interpretation: Radiology results and stated below per my review and radiologist interpretation: ULTRASOUND OF THE PELVIS FINDINGS: Uterus: The gravid uterus is enlarged and heterogeneous Gestation: There are 2 live intrauterine gestations. These appear dichorionic diamniotic. Baby A has a crown-rump length measuring 2.52 cm, corresponding to an aspirated age of 9 weeks 2 days and the heart rate measuring 187 bpm. The crown length for baby B measures 2.44 cm, corresponding to estimated age of 9 weeks 1 day. The estimated heart rate is 172 bpm. There are 2 small subchorionic hemorrhages identified measuring up to 4.0 cm. Ovaries: The ovaries are enlarged. The right ovary measures 5.4 x 2.8 x 6.2 cm and the left ovary measures 9.0 x 4.9 x 10.2 cm. Numerous follicles are identified. Normal Doppler waveforms are shown within both ovaries. Pelvis: There is no free fluid in the cul-de-sac. No concerning adnexal lesion is seen. IMPRESSION: 1. There are live twin gestations with an estimated age of 9 weeks 2 days by crown-rump length measurement. 2. There are 2 small subchorionic hemorrhages identified as above. 3. The ovaries are enlarged. Normal Doppler flow is present within both ovaries. Electronically signed by: Iggy Brewster M.D. Laboratory Results 11/02/16 17:39 Test 11/02/16 17:35 11/02/16 17:39 Urine Color YELLOW Urine Appearance CLEAR (CLEAR) Urine pH 7.5 (4.5-7.5) Urine Specific [place] 1.007 (1.000-1.030) Urine Protein NEG (NEG) Urine Glucose (UA) NEG (NEG) Urine Ketones NEG (NEG) Urine Occult Blood 1+ (NEG) Urine Nitrite NEG (NEG) Urine Bilirubin NEG (NEG) Urine Urobilinogen NEG (NEG) Urine Leukocyte Esterase NEG (NEG) Urine WBC (Auto) 0 /hpf (0-5) Urine RBC (Auto) 0-4 /hpf (0-4) Urine Hyaline Casts (Auto) 0 /lpf (0-5) Urine Epithelial Cells (Auto) 0-5 /lpf (0-5) Urine Bacteria (Auto) NEG (NEG) Human Chorionic Gonadotropin, Quant [id number] mIU/mL Laboratory results as reviewed by me. ED Course 1716: The patient was evaluated in room C9. A complete history and physical exam was performed. 1952: I checked in on the patient. She is feeling well. Her bleeding has greatly reduced. 2035: I reassessed the patient. She comfortable with going home. She has an appointment with her OBGYN in two days. 2044: Reevaluated the patient. Discussed results and discharge instructions: she verbalized understanding and agreement. The patient is ready for discharge. Medical Decision Differential: Subchorionic hemorrhage, Previa, Miscarriage, Infectious, Ectopic , Bleeding Dyscrasia, amongst other pathologies entertained. Pleasant 35 yr old female with initially heavy bleeding that has lightened up. She is 9 wks with twins s/p IVF on BID progesterone and daily Lovenox ( history Factor V with no history of clotting/pe/dvt). Moderate anemia though only minimally below previous and she has stable vitals without near-syncope. HCG elevated consistent. Known B+ blood type. Vitals good. US with subchor hemorrhages. Minimal further bleeding. Reviewed risks of miscarriage. After discussion with heme and ob feeling is that Lovenox should be stopped for current moment. She has appointment with OB in 36 hours and will discuss whether further lovenox will be necessary. Stable and breathing comfortably and comfortable with plan at time of discharge. Consults Time Called: 1953 Consulting Physician: Dr. Diaz -Hematology Returned Call: 1956 Discussed the patient's case. Dr. Diaz states that it sounds reasonable to hold the Lovenox, but that the patient should follow up with her prescribing physician. Additional Consults: Time Called: 2007 Consulted Physician: Dr. Yusuf ALCARAZ Returned Call: [phone] Additional Comments: Discussed the patient's case. Dr. Goldberg recommends that the patient will up as an outpatient closely. Impression Primary Impression: Subchorionic hematoma in first trimester Additional Impression: Vaginal bleeding before 22 weeks gestation Scribe Attestation The scribe's documentation has been prepared under my direction and personally reviewed by me in its entirety. I confirm that the note above accurately reflects all work, treatment, procedures, and medical decision making performed by me. Departure Information Dispostion Home / Self-Care Referrals No Doctor, Assigned (PCP) Patient Instructions Bleeding Early Preg, My [facility] Problem Qualifiers
[2016-11-02 20:56] VITALS: BP 116/62; PULSE 85; TEMP 36.9; O2SAT 97
== END 2016-11-02 20:56 | disposition home or self-care (01) ==
LOC: C.EDB 16:49 → C.EDC 20:56
DX: O46.8X1 Other antepartum hemorrhage, first trimester (principal); O20.8 Other hemorrhage in early pregnancy; Z3A.09 9 weeks gestation of pregnancy; O99.111 Other diseases of the blood and blood-forming organs and certain disorders involving the immune mechanism complicating pregnancy, first trimester; D68.51 Activated protein C resistance; Z83.2 Family history of diseases of the blood and blood-forming organs and certain disorders involving the immune mechanism; Z82.49 Family history of ischemic heart disease and other diseases of the circulatory system; Z82.0 Family history of epilepsy and other diseases of the nervous system

== ENCOUNTER → 2016-11-10 | Outpatient (CLI) | payer OTHER ==
[~2016-11-10] MED LIST changes: +PRENTAB26 PO
[2016-11-10 14:46] LABS: BASO % 0.2 %; BASO ABS # 0.02 K/uL (0-0.2); COMPLETE YES; EOS % 0.4 %; HEMATOCRIT 30.8 % (37-47); IG% 0.5 %; LYMPH % 15.2 %; MEAN CELL VOLUME 87.7 fL (80-100); MEAN CORPUSCULAR HEMOGLOBIN 31.1 pg (25-34); MEAN CORPUSCULAR HGB CONC 35.4 g/dl (32-36); MEAN PLATELET VOLUME 9.8 fL (7.4-10.4); MONO % 4.3 %; NEUT % 79.4 %; PLATELET COUNT 223 K/uL (130-400); RED BLOOD COUNT 3.51 M/uL (4.2-5.4); WHITE BLOOD COUNT 11.88 K/uL (4.8-10.8)
== END | disposition home or self-care (01) ==
LOC: C.LAB1850 13:22
PROVIDERS: ATTEND Obstetrics & Gynecology
DX: O34.219 Maternal care for unspecified type scar from previous cesarean delivery (principal); Z3A.00 Weeks of gestation of pregnancy not specified

== ENCOUNTER → 2016-11-10 | Outpatient (CLI) | payer OTHER ==
[2016-11-10 18:33] LABS: URINE APPEARANCE CLOUDY (CLEAR); URINE BILIRUBIN NEG (NEG); URINE COLOR YELLOW; URINE EPITHELIAL CELL AUTO >30 /lpf (0-5); URINE NITRITE NEG (NEG); URINE PH 6.5 (4.5-7.5); URINE SPECIFIC GRAVITY 1.014 (1.000-1.030); UROBILINOGEN NEG (NEG)
[2016-11-10 18:37] LABS: MANUAL MICROSCOPIC REQUIRED? NO; REVIEW REQ? YES
[2016-11-13 02:58] LABS: CHLAMYDIA TRACH RNA*** NOT DETECTED (NOT DETECTED); GC (NEIS GONORRHOEAE)RNA** NOT DETECTED (NOT DETECTED)
== END | disposition home or self-care (01) ==
LOC: C.LABSPEC 16:32
PROVIDERS: ATTEND Obstetrics & Gynecology
DX: O34.219 Maternal care for unspecified type scar from previous cesarean delivery (principal); Z3A.00 Weeks of gestation of pregnancy not specified

== ENCOUNTER → 2016-12-24 | Outpatient (CLI) | payer OTHER ==
[2016-12-24 10:53] LABS: GTGD 50 Grams
== END | disposition home or self-care (01) ==
LOC: C.LAB1850 09:07
PROVIDERS: ATTEND Obstetrics & Gynecology
DX: O30.041 Twin pregnancy, dichorionic/diamniotic, first trimester (principal); Z3A.00 Weeks of gestation of pregnancy not specified

== ENCOUNTER → 2017-01-04 | Outpatient (CLI) | payer OTHER | END | disposition home or self-care (01) | LOC: C.LAB 08:06 | PROVIDERS: ATTEND Obstetrics & Gynecology | DX: O28.1 Abnormal biochemical finding on antenatal screening of mother (principal); Z3A.00 Weeks of gestation of pregnancy not specified ==

== ENCOUNTER → 2017-03-08 | Outpatient (CLI) | payer OTHER ==
[2017-03-08 19:02] LABS: MANUAL MICROSCOPIC REQUIRED? NO; REVIEW REQ? NO; URINE APPEARANCE CLEAR (CLEAR); URINE BILIRUBIN NEG (NEG); URINE COLOR YELLOW; URINE NITRITE NEG (NEG); URINE SPECIFIC GRAVITY 1.007 (1.000-1.030); UROBILINOGEN NEG (NEG)
== END | disposition home or self-care (01) ==
LOC: C.LAB1850 16:17
PROVIDERS: ATTEND Obstetrics & Gynecology
DX: O26.899 Other specified pregnancy related conditions, unspecified trimester (principal)

== ENCOUNTER → 2017-03-16 | Outpatient (CLI) | payer OTHER ==
[2017-03-16 16:30] LABS: HEMATOCRIT 29.1 % (37-47)
[2017-03-16 18:18] LABS: URINE APPEARANCE CLEAR (CLEAR); URINE BILIRUBIN NEG (NEG); URINE COLOR YELLOW; URINE NITRITE NEG (NEG); URINE PH 7.5 (4.5-7.5); UROBILINOGEN NEG (NEG)
[2017-03-16 18:32] LABS: MANUAL MICROSCOPIC REQUIRED? NO; REVIEW REQ? NO
== END | disposition home or self-care (01) ==
LOC: C.LAB1850 15:05
PROVIDERS: ATTEND Obstetrics & Gynecology
DX: O30.043 Twin pregnancy, dichorionic/diamniotic, third trimester (principal); Z3A.00 Weeks of gestation of pregnancy not specified

== ENCOUNTER → 2017-04-02 | Outpatient (CLI) | payer OTHER ==
[~2017-04-02] MED LIST changes: +IRON PO; +MTR600X PO; +OXYC-57 PO
== END | disposition home or self-care (01) ==
LOC: C.LAB1850 07:41
PROVIDERS: ATTEND Obstetrics & Gynecology
DX: O30.043 Twin pregnancy, dichorionic/diamniotic, third trimester (principal)

== ENCOUNTER 2017-04-12 16:00 | Outpatient (CLI) | payer OTHER ==
[~2017-04-12 16:00] MED LIST changes: -IRON PO; -MTR600X PO; -OXYC-57 PO
== END 2017-04-12 16:45 | disposition home or self-care (01) ==
LOC: C.OPB 16:00 → C.LD 16:00 → C.OPB 16:45
PROVIDERS: ATTEND Obstetrics & Gynecology
DX: O30.009 Twin pregnancy, unspecified number of placenta and unspecified number of amniotic sacs, unspecified trimester (principal); Z3A.00 Weeks of gestation of pregnancy not specified

== ENCOUNTER 2017-04-19 11:46 | Outpatient (CLI) | payer OTHER ==
[~2017-04-19 11:46] MED LIST changes: -ENOX40IN SQ; -ESTR2TAB PO; -PROG100S PV
== END 2017-04-19 12:10 | disposition home or self-care (01) ==
LOC: C.OPB 11:46 → C.LD 11:48 → C.OPB 12:10
PROVIDERS: ATTEND Obstetrics & Gynecology
DX: O30.009 Twin pregnancy, unspecified number of placenta and unspecified number of amniotic sacs, unspecified trimester (principal); Z3A.00 Weeks of gestation of pregnancy not specified

== ENCOUNTER 2017-04-26 11:47 | Outpatient (CLI) | payer OTHER ==
[~2017-04-26] VITALS: Ht 165.1 cm; Wt 75.5 kg
[2017-04-26 12:35] VITALS: Ht 165.1 cm; Wt 75.5 kg
== END 2017-04-26 12:30 | disposition home or self-care (01) ==
LOC: C.LD 11:47 → C.OPB 11:47
PROVIDERS: ATTEND Obstetrics & Gynecology
DX: O30.001 Twin pregnancy, unspecified number of placenta and unspecified number of amniotic sacs, first trimester (principal); Z3A.00 Weeks of gestation of pregnancy not specified

== ENCOUNTER 2017-05-03 12:26 | Outpatient (CLI) | payer OTHER ==
--- NOTE | 2017-05-07 13:38 | EDITING REQUIRED CODING QUERY ---
DIAGNOSIS NEEDED To promote full compliance with coding requirements relating to patient care, physician participation is requested in all cases of concrete bucket hooker uncertainty. Please assist us with the question(s) below: Coding Question: The patient received care in labor and delivery on 05/03/17 as noted within the record. Please document the diagnosis that is being addressed by the medication/treatment. Provider Response: DIAGNOSIS: Twin nsts only WEEKS OF GESTATION: 35 weeks Thank you for your assistance, Elizabeth Graham - Greige Goods Marker
== END 2017-05-03 12:47 | disposition home or self-care (01) ==
LOC: C.OPB 12:26 → C.LD 12:26 → C.OPB 12:47
PROVIDERS: ATTEND Obstetrics & Gynecology
DX: O30.003 Twin pregnancy, unspecified number of placenta and unspecified number of amniotic sacs, third trimester (principal); Z3A.35 35 weeks gestation of pregnancy

== ENCOUNTER 2017-05-10 11:45 | Outpatient (CLI) | payer OTHER ==
[~2017-05-10 11:45] MED LIST changes: -IRON PO
--- NOTE | 2017-05-14 11:16 | EDITING REQUIRED CODING QUERY ---
DIAGNOSIS NEEDED To promote full compliance with coding requirements relating to patient care, physician participation is requested in all cases of machine stonecutter uncertainty. Please assist us with the question(s) below: Coding Question: The patient received care in labor and delivery on 05/10/17 as noted within the record. Please document the diagnosis that is being addressed by the medication/treatment. Provider Response: DIAGNOSIS: Twins WEEKS OF GESTATION: Thank you for your assistance, Elizabeth Graham - Umbrella Frame Maker
[2017-05-17] MEDS ORDERED: IRON PO (09:58)
== END 2017-05-10 12:10 | disposition home or self-care (01) ==
LOC: C.OPB 11:45 → C.LD 11:45 → C.OPB 12:10
PROVIDERS: ATTEND Obstetrics & Gynecology
DX: O30.009 Twin pregnancy, unspecified number of placenta and unspecified number of amniotic sacs, unspecified trimester (principal); Z3A.00 Weeks of gestation of pregnancy not specified

== ENCOUNTER → 2017-05-10 | Outpatient (CLI) | payer OTHER ==
[~2017-05-10] MED LIST changes: +IRON PO
== END | disposition home or self-care (01) ==
LOC: C.LABSPEC 13:10
PROVIDERS: ATTEND Obstetrics & Gynecology
DX: O30.043 Twin pregnancy, dichorionic/diamniotic, third trimester (principal); Z3A.00 Weeks of gestation of pregnancy not specified

== ENCOUNTER 2017-05-13 11:06 | Outpatient (CLI) | payer OTHER | END 2017-05-13 11:55 | disposition home or self-care (01) | LOC: C.OPB 11:06 → C.LD 11:06 → C.OPB 11:55 | PROVIDERS: ATTEND Obstetrics & Gynecology | DX: O30.009 Twin pregnancy, unspecified number of placenta and unspecified number of amniotic sacs, unspecified trimester (principal); Z3A.00 Weeks of gestation of pregnancy not specified ==

== ENCOUNTER 2017-05-17 10:38 | Outpatient (CLI) | payer OTHER ==
[~2017-05-17 10:38] MED LIST changes: +IRON PO
--- NOTE | 2017-05-20 09:29 | EDITING REQUIRED CODING QUERY ---
DIAGNOSIS NEEDED To promote full compliance with coding requirements relating to patient care, physician participation is requested in all cases of carton waxing machine operator uncertainty. Please assist us with the question(s) below: Coding Question: The patient received care in labor and delivery on 05/17/17 as noted within the record. Please document the diagnosis that is being addressed by the medication/treatment. Provider Response: DIAGNOSIS: twins WEEKS OF GESTATION: Thank you for your assistance, Elizabeth Graham - Keg Filler
== END 2017-05-17 11:15 | disposition home or self-care (01) ==
LOC: C.LD 10:38 → C.OPB 10:38
PROVIDERS: ATTEND Obstetrics & Gynecology
DX: O30.009 Twin pregnancy, unspecified number of placenta and unspecified number of amniotic sacs, unspecified trimester (principal); Z3A.00 Weeks of gestation of pregnancy not specified

== ENCOUNTER 2017-05-20 10:17 | Outpatient (CLI) | payer OTHER | END 2017-05-20 10:55 | disposition home or self-care (01) | LOC: C.LD 10:17 → C.OPB 10:17 | PROVIDERS: ATTEND Obstetrics & Gynecology | DX: O30.009 Twin pregnancy, unspecified number of placenta and unspecified number of amniotic sacs, unspecified trimester (principal); Z3A.00 Weeks of gestation of pregnancy not specified ==

== ENCOUNTER 2017-05-24 03:09 | Inpatient (IN) | payer OTHER ==
--- NOTE | 2017-05-17 10:21 | PAT Medication Instructions ---
Service Date May 17, 2017. Current Home Medication List Multivit/Min/Iron/Fol Ac/Pren ( Vitamin), 1 TAB PO QAM [Iron], 1 TAB PO QAM Medication Instructions For Your Scheduled Surgery - Hold the following medications the morning of surgery: Multivit/Min/Iron/Fol Ac/Pren ( Vitamin), 1 TAB PO QAM [Iron], 1 TAB PO QAM If you have any questions please call us at [phone] or [phone] or [phone]
[2017-05-17 10:41] LABS: BASO % 0.3 %; BASO ABS # 0.02 K/uL (0-0.2); EOS % 0.5 %; EOS ABS # 0.03 K/uL (0-0.5); HEMATOCRIT 32.5 % (37-47); HEMOGLOBIN 11.2 g/dL (12.0-16.0); IG# 0.04 K/uL (0.00-0.02); LYMPH % 25.2 %; LYMPH ABS # 1.56 K/uL (1.2-3.4); MEAN CELL VOLUME 91.3 fL (80-100); MEAN CORPUSCULAR HEMOGLOBIN 31.5 pg (25-34); MEAN CORPUSCULAR HGB CONC 34.5 g/dl (32-36); MEAN PLATELET VOLUME 10.9 fL (7.4-10.4); MONO ABS # 0.37 K/uL (0.11-0.59); NEUT % 67.4 %; NEUT ABS # 4.18 K/uL (1.4-6.5); PLATELET COUNT 128 K/uL (130-400); RED CELL DISTRIBUTION WIDTH SD 50.3 fL (36.4-46.3)
[~2017-05-24] VITALS: Ht 165.1 cm; Wt 77.3 kg
[2017-05-24] VITALS (13 sets, daily range): BP systolic 112–127; BP diastolic 70–74; PULSE 58–65; TEMP 36.5–37.2; O2SAT 97–100; Ht 165.1 cm; Wt 77.3 kg
[2017-05-24] MEDS ORDERED: LACTATED RINGER'S 1000ML 1,000 ML IV PRN (05:51)
[2017-05-24] MEDS ORDERED: CITRIC ACID/SODIUM CITRATE 15 ML UDC PO SCH (06:00)
[2017-05-24] MEDS ORDERED: CEFAZOLIN IV 2,000 MG in SYRINGE 0 ML IV SCH (06:00)
[2017-05-24] MEDS ORDERED: LACTATED RINGER'S 1000ML 1,000 ML IV SCH ×3 (06:00→17:40)
[2017-05-24 06:16] LABS: HEMATOCRIT 32.9 % (37-47); MEAN CELL VOLUME 92.2 fL (80-100); MEAN CORPUSCULAR HEMOGLOBIN 30.8 pg (25-34); MEAN CORPUSCULAR HGB CONC 33.4 g/dl (32-36); MEAN PLATELET VOLUME 11.5 fL (7.4-10.4); PLATELET COUNT 130 K/uL (130-400); RED CELL DISTRIBUTION WIDTH CV 14.7 % (11.5-14.5); RED CELL DISTRIBUTION WIDTH SD 49.9 fL (36.4-46.3); WHITE BLOOD COUNT 5.52 K/uL (4.8-10.8)
[2017-05-24] MEDS ORDERED: OXYTOCIN INJ 10 UNITS/ML VIAL ONE (07:39)
[2017-05-24] MEDS ORDERED: MoRPHine SULFATE PF 1 MG/ML 10 ML AMP/VIAL ONE (07:39)
[2017-05-24] MEDS ORDERED: FENTANYL CITRATE INJ 50 MCG/1 ML 2 ML VIAL ONE (07:39)
--- NOTE | 2017-05-24 07:46 | HISTORY & PHYSICAL EXAMINATION ---
DATE OF ADMISSION: 05/24/2017 PREOPERATIVE DIAGNOSIS: Twin intrauterine at term. HISTORY OF PRESENT ILLNESS: This is a 36-year-old G5, P3-0-1-3 with a known di/di twin . This has been complicated by a Factor V Leiden mutation which has not required any anticoagulation as well as a previous history of section for which the patient desires repeat. Of note, these are IVF ICSI twins. Growth has been concordant and the itself has been fairly unremarkable. PAST MEDICAL HISTORY: Anxiety, depression, migraines, pleural effusion without known cause, varicella. PAST SURGICAL HISTORY: Ruptured ectopic requiring transfusion, salpingectomy, prior . OBSTETRIC HISTORY: Three prior deliveries at full term of babies ranging from 8 pounds 0 ounces to 9 pounds 8 ounces, 2 were vaginal and the final was for previa. ALLERGIES: None. MEDICATIONS: Prenatals and iron. FAMILY HISTORY: Noncontributory. SOCIAL HISTORY: Negative x3. female. PHYSICAL EXAMINATION: VITAL SIGNS: The patient has heart tones at 120 beats per minute, moderate variability with accels, no decels and baby B is 135 beats per minute, moderate variability, positive accels, no decels. Toca was quiet. Weight 170, blood pressure 110/70. GENERAL: Alert and in no acute distress. HEART: Shows regular rate and rhythm. LUNGS: Clear to auscultation bilaterally. ABDOMEN: Gravid, nontender. Cervical exam is deferred. Extremities are within normal limits. ASSESSMENT AND PLAN: In vitro fertilization, intracytoplasmic sperm injection dichorionic/diamniotic twins for repeat section.
[2017-05-24] MEDS ORDERED: PHENYLEPHRINE 100MCG/ML 5ML SYR ONE (07:58)
[2017-05-24] MEDS ORDERED: ONDANSETRON INJ 2 MG/ML 2 ML VIAL ONE ×2 (08:16→08:53)
[2017-05-24] MEDS ORDERED: SUPERCREAM 0.870 % 15GM JAR EXT PRN (08:45)
[2017-05-24] MEDS ORDERED: HYDROCORTISONE ACETATE 25 MG SUPP PR PRN (08:45)
[2017-05-24] MEDS ORDERED: DiphenhydrAMINE HCL 50 MG/ML VIAL IV PRN ×2 (08:45→09:00)
[2017-05-24] MEDS ORDERED: BENZOCAINE 20% AER SPR 82.5 GM CAN EXT PRN (08:45)
[2017-05-24] MEDS ORDERED: LANOLIN OINT EXT PRN (08:45)
[2017-05-24] MEDS ORDERED: SENNA 8.6 MG TAB PO PRN (08:45)
--- NOTE | 2017-05-24 08:45 | [facility] Post Operative Brief Note ---
Immediate Operative Summary Operative Date May 24, 2017. Pre-Operative Diagnosis 1. Term twin 2. Patient desires tubal ligation 3. Previous Caesarean section Post-Operative Diagnosis same Procedure(s) Performed Repeat caesarean section with a left tubal ligation and the of live twin girls; Baby A at 0803 and Baby B at [address]. Surgeon Dr. Delmy Rae Engineering Supervisor Surgeon(s) Dr. Buck Barajas Estimated Blood Loss 800ml Findings Consistent with Post-Op Diagnosis Specimens A; Placenta A and B- exam B; Cord Blood A and B Drains None Anesthesia Type Spinal Complication(s) none Disposition Accompanied Pt To Recover: yes Disposition: L&D
[2017-05-24] MEDS ORDERED: NALOXONE HCL INJ 0.08 MG in SYRINGE 1.8 ML IV PRN (08:50)
[2017-05-24] MEDS ORDERED: SODIUM CHLORIDE 0.9% 1000ML 1,000 ML IV PRN (08:50)
[2017-05-24] MEDS ORDERED: NALOXONE HCL INJ 1 MG in SODIUM CHLORIDE 0.9% 1000ML 1,000 ML IV PRN (08:50)
[2017-05-24] MEDS ORDERED: LACTATED RINGER'S 1000ML 500 ML IV PRN (08:50)
--- NOTE | 2017-05-24 08:59 | Discharge Instructions ---
Discharge Instructions Date of Service May 24, 2017. Admission Reason for Admission: History Of Section, Desires Sterilization Discharge Discharge Diagnosis / Problem: Discharge Goals Goal(s): Routine recovery after Medications Continue Dispensed Medications: supercream, lansinoh Activity Recommendations Activity Limitations: per Instructions/Follow-up section . Instructions / Follow-Up Instructions / Follow-Up ACTIVITY RECOMMENDATIONS: * Gradual return to full activity over the next 2-3 weeks. * No lifting - nothing heavier than baby over the next 2-3 weeks. * Do not engage in vigorous exercise, sexual activity or sports until cleared by your physician. * Do not drive or operate any motorized equipment until cleared by your physician. * You may shower/bathe daily. MEDICATIONS: For discomfort or pain, you may use Acetaminophen (Tylenol), Ibuprofen (Advil), or Naproxen (Aleve) following the package directions. For constipation you may use Colace following the package directions. BREAST CARE: If you are not breast feeding: * Wear a supportive bra 24 hours a day for one to two weeks. * Avoid stimulating your breasts and nipples as much as possible during the first few weeks after delivery. * When taking a shower, have the warm water hit your back, not breasts. * When your breasts feel full, apply ice packs. Usually three to four times a day helps ease the discomfort. * Take a mild pain medication (Tylenol / Motrin) when you are uncomfortable. If breast feeding: * Use breast milk to lubricate nipples. Lansinoh cream may be used for sore nipples. You do not need to remove cream prior to breast feeding. If using a different brand of cream, check the label for directions regarding removal of cream prior to nursing. * Wear a supportive bra. * If having problems with breasts or breast feeding, call a senior science consultant or your health care provider. SPECIAL CARE INSTRUCTIONS: When you are discharged from the hospital, it is important for you to follow the instructions listed below: * During the first week at home, you should be able to care for yourself and your baby. In addition, the usual light household activities are encouraged. * Limit your activities to the way you feel. Do not try to clean the house or move furniture. Be sensible. * If you actively engage in sports and have done so up until the time of your delivery, you may resume these activities as soon as you feel able. This may take up to one month or even longer. Use good judgment. * Continue to take your vitamins for at least six weeks after the of your baby. * Your diet need not be limited unless you were on a special diet before your delivery. Breast-feeding mothers need around 2500 calories per day and at least 64-80 ounces of fluid per day (8 to 10 glasses). * You should eat foods from the four major food groups. Crash diets or fad diets are to be avoided. Eating lean meats, fresh fruits and vegetables, low-fat dairy products, high fiber foods and a regular exercise program, will help you get back to your pre- weight without putting your health at risk. * Constipation is sometimes a problem after delivery. Take a mild laxative as needed. If breast feeding, Milk of Magnesia is acceptable to use. You may use a suppository or Fleets enema. * A daily shower or tub bath is suggested. Wash incision daily with warm soapy water and pat dry. It doesn't need to be covered unless drainage is present. * A bloody vaginal discharge will usually continue until around four weeks . A small amount of bleeding may continue for as long as six weeks. Vaginal discharge changes from the bright red bleeding after delivery to pink then brownish and finally yellowish-pink before becoming white and disappearing. * Bleeding may increase with activity. Your first period may come in 4-8 weeks. If you are breast feeding, your period may be delayed even longer. * [place] (sex) can begin whenever both you and your partner feel comfortable and do not have any form of genital infection. It is recommended that you wait at least six weeks for internal and external healing to occur. If you have questions, please talk to your health care practitioner. A condom should be used to prevent infection and . * Foreplay, gentle intercourse and lubrication is very important the first several times to prevent pain. A water-based lubricant such as K-Y jelly or Astroglide may be used. * If you have RH negative blood and your baby is RH positive, you will receive RHOGAM by injection prior to discharge. The nurse will give you a card to keep with you that has the date and place that you received RHOGAM after delivery. * During your care, you had a Rubella screen done to check for the presence of rubella antibodies in your blood. If your test was negative, you will receive a Rubella vaccine prior to discharge. This vaccine may cause a fever, soreness at the injection site and flu-like symptoms. If these symptoms persist, notify your health care practitioner. is not advised for one month after a Rubella vaccine. * Verbalizes understanding of car seat law as reviewed with patient nursing. * Car Seat hand-out given and reviewed with patient by nursing. * Shaken baby information reviewed with patient by nursing. Call you doctor if: * Heavy bleeding (saturating several pads an hour) or passing clots the size of your fist. * A fever >101 degrees F (38.3 degrees C) on two occasions four hours apart and /or chills. * Unusual pain in the pelvic or vaginal areas. * Call the doctor for any increased redness, drainage or swelling around the incision and any pain unrelieved by prescribed pain medication. * "Baby Blues" lasting longer than two weeks. If you have any questions or concerns, call your health care practitioner at . FOLLOW UP VISIT: * Please call the office at to schedule a 6 week examination. It is important you keep this appointment. It is important for you to make arrangements for either yearly or twice yearly check-ups thereafter. Current Hospital Diet Patient's current hospital diet: Discharge Diet Recommended Diet: Regular Diet Procedures Procedures Performed: Repeat caesarean section with a left tubal ligation and the of live twin girls; Baby A at 0803 and Baby B at 0804. Pending Studies Studies pending at discharge: no Medical Emergencies . Who to Call and When: Medical Emergencies: If at any time you feel your situation is an emergency, please call [phone] immediately. . Non-Emergent Contact Non-Emergency issues call your: Primary Care Provider . . "Provider Documentation" section prepared by Julianne Mathew. . VTE Core Measure Inpt VTE Proph given/why not?: SCD's
[2017-05-24] MEDS ORDERED: MEPERIDINE HCL 25 MG/ML CARP IV PRN (09:00)
[2017-05-24] MEDS ORDERED: EpHEDrine SULFATE INJ 50 MG/ML AMP IV PRN (09:00)
[2017-05-24] MEDS ORDERED: PROMETHAZINE HCL INJ 12.5 MG in SODIUM CHLORIDE 0.9% 50ML 50 ML IV ONE (09:00)
[2017-05-24] MEDS ORDERED: MoRPHine SULFATE 2 MG/ML CARP IV PRN (09:00)
[2017-05-24] MEDS ORDERED: KETOROLAC TROMETHAMINE 30 MG/ML VIAL IV. PRN (09:00)
[2017-05-24] MEDS ORDERED: NALOXONE HCL 0.4 MG/1 ML VIAL/CARP IV PRN (09:00)
[2017-05-24] MEDS ORDERED: MoRPHine SULFATE PF 1 MG/ML 10 ML AMP/VIAL EPI PRN (09:00)
[2017-05-24] MEDS ORDERED: OXYTOCIN INJ 30 UNITS in LACTATED RINGER'S 1000ML 1,000 ML IV SCH (09:00)
[2017-05-24] MEDS ORDERED: NO NARCOTICS OR SEDATIVES SCH (09:00)
[2017-05-24] MEDS ORDERED: ONDANSETRON INJ 2 MG/ML 2 ML VIAL IV PRN (09:00)
[2017-05-24] MEDS ORDERED: NALBUPHINE HCL INJ 10 MG/ML AMP IV PRN (09:00)
--- NOTE | 2017-05-24 09:08 | OPERATIVE REPORT ---
DATE OF OPERATION: 05/24/2017 PREOPERATIVE DIAGNOSES: 1. In vitro fertilization intracytoplasmic sperm injection twins in utero. 2. Prior section. 3. Desires sterilization. SURGEON: Dr. Esthela Rae. CERTIFIED MEETING PROFESSIONAL: Tiana Barajas MD ESTIMATED BLOOD LOSS: Per anesthesia. SURGERY: 1. Repeat low transverse section for 2 viable twin infants. 2. Ligation of the left fallopian tube at patient's request for sterilization. DESCRIPTION OF PROCEDURE: The patient was placed on table in the supine position with a leftward tilt and prepped and draped in standard sterile fashion and a hard time-out was taken prior to proceeding. A Pfannenstiel incision was created through the prior scar and carried down sharply to the fascia, which was incised sharply. The fascia was then elevated using Palma clamps and sharply and bluntly dissected off the underlying rectus musculature. The muscles were naturally in the midline and the peritoneum was entered bluntly. A bladder blade was placed. Palpation revealed baby A's head was still in the vertex presentation. A bladder flap was created using pickups and Metzenbaum scissors. The entry to the uterus was then made in a sharp manner with final entry being made in a blunt manner for a transverse hysterotomy. Baby A was elevated to the hysterotomy and the membranes were deliberately ruptured with an Allis clamp for clear fluid. Baby was delivered using mild fundal pressure and was vigorous immediately upon extraction. The cord was doubly clamped and cut and the infant was taken to the warmer. Baby B was then delivered in a breech manner. The feet were grasped and brought to the incision. The membranes were deliberately ruptured and the feet, legs and sacrum in the sacrum anterior position were then gently delivered. Attempt was made to sweep the arms; however, these were in position up high above the 's head. Using mild fundal pressure, the infant was delivered with its arms up alongside the head and the head remaining in flexion at all times. After the infant was extracted, the cord was doubly clamped and cut and the vigorous was taken to the warmer for resuscitation. The placenta was delivered manually and then the uterus was exteriorized while IVP was given. The uterus was cleared of all clot and debris using a dry lap sponge. The angles of the hysterotomy were held with Allis clamps while the hysterotomy was repaired in 2-layer fashion using 0 Vicryl suture in a running locked manner. At the completion of the repair, an arterial bleeder was noted at the left uterine angle. This was addressed with a [id number] suture of 0 chromic, which stemmed about 80% of the flow. However, there continued to be some oozing at the site. For that reason, an O'Durham suture was placed both superior and inferior to the bleeding edge of the hysterotomy on the left side. This did incorporate the round ligament; however, did not incorporate the IP. Once the O'Durham sutures were placed, the bleeding was completely stopped. The uterus was anteflexed and the posterior gutter was cleared of clot and debris and attention was then turned to tubal ligation. The patient's consent was confirmed. One final time, she did desire that the remaining left tube be ligated. Of note, her right tube had previously been surgically excised with an ectopic in the past. The left tube was elevated with a Templeton clamp, doubly ligated with 0 chromic suture and then the isolated knuckle of tube was excised sharply. Good hemostasis was seen. The uterus was then reapproximated to the maternal abdomen. Both ovaries being seen to be normal. The right tube being confirmed to be surgically absent and the left tube being ligated. Under direct observation after clearing the clot and debris from each of the lateral gutters, the hysterotomy continued to be hemostatic. All instruments were removed and lap sponges were counted. The rectus were allowed to reapproximate naturally and the fascia was then closed using 1 Vicryl in a running nonlocked manner, at the completion of which, subcutaneous tissue was copiously irrigated and the skin was then closed with 4-0 Monocryl and a Dermabond dressing was applied. The Yan was noted to be draining clear yellow urine and the patient was then transferred in stable condition to her room. I attest to the content of the Intraoperative Record and any orders documented therein. Any exception s are noted below.
--- NOTE | 2017-05-24 09:09 | Anesthesiology Progress Note ---
Anesthesia Post Op Note Date & Time May 24, 2017 at 09:09 Notes Mental Status: alert / awake / arousable, participated in evaluation Pt Amnestic to Procedure: Yes Nausea / Vomiting: adequately controlled, improving with treatment Pain: adequately controlled Airway Patency, RR, SpO2: stable & adequate BP & HR: stable & adequate Hydration State: stable & adequate Neuraxial Anesthesia: was administered, sensory block is resolving Anesthetic Complications: no major complications apparent
[2017-05-24] MEDS: SIMETHICONE 80 MG CHEW PO SCH ×2 (16:32→19:49)
[2017-05-24] MEDS: DOCUSATE SODIUM 100 MG CAP PO SCH (19:49)
[2017-05-25] VITALS (9 sets, daily range): BP systolic 114–127; BP diastolic 66–73; PULSE 60–68; TEMP 36.9–37.2; O2SAT 96–98
[2017-05-25] MEDS ORDERED: OXYCODONE/ACETAMINOPHEN 5-325 TAB PO PRN (02:00)
[2017-05-25] MEDS ORDERED: DC INTRASPINAL MORPHINE ONE (02:00)
[2017-05-25] MEDS ORDERED: ONDANSETRON INJ 2 MG/ML 2 ML VIAL IV PRN (02:00)
[2017-05-25] MEDS ORDERED: KETOROLAC TROMETHAMINE 30 MG/ML VIAL IV. PRN (02:00)
--- NOTE | 2017-05-25 06:35 | Progress Note ---
Subjective May 25, 2017. Subjective conversation w/ patient Ambulation: ambulating normally Voiding: no voiding problems Passing Gas: No Diet Tolerance: Clear Liquids Lochia: Moderate Feeding Type: Breast Feeding Pain: 2-3/10 over abdomen, improved with analgesia Review of Systems Constitutional: No fever, No chills Respiratory: No shortness of breath Cardiac: No chest pain Abdomen: No nausea, No vomiting Female : No dysuria Objective Vital Signs Date Time Temp Pulse Resp B/P (MAP) Pulse Ox O2 Delivery O2 Flow Rate FiO2 05/25/17 03:10 37.0 60 18 127/73 (91) 97 Room Air 05/25/17 02:00 16 96 05/25/17 01:00 18 98 05/25/17 00:15 18 98 05/25/17 00:15 98 Room Air 05/25/17 00:15 36.9 62 18 114/70 (85) 98 Room Air 05/24/17 23:30 18 97 05/24/17 22:30 18 100 05/24/17 21:40 20 100 05/24/17 20:35 18 100 05/24/17 19:35 18 100 05/24/17 19:35 37.2 65 18 127/73 (91) 100 Room Air 05/24/17 18:04 20 100 05/24/17 17:20 20 100 05/24/17 16:30 20 100 05/24/17 15:30 37.0 63 18 125/74 (91) 100 Room Air 05/24/17 15:30 18 100 05/24/17 15:30 100 Room Air 05/24/17 14:15 20 100 05/24/17 13:20 18 100 05/24/17 12:15 18 100 05/24/17 11:45 100 Room Air 05/24/17 11:45 36.5 58 16 112/70 (84) 100 Room Air 05/24/17 11:45 16 100 05/24/17 11:45 100 Room Air Physical Exam General Appearance: WELL-APPEARING, WD/WN, NO APPARENT DISTRESS Respiratory/Chest: lungs clear, normal breath sounds Cardiovascular: regular rate, rhythm Abdomen: soft Fundus: Firm, Tender, Relation to Umbilicus (at u) Incision Description: Clean, Dry & Intact Extremities: no calf tenderness Laboratory Results Last 24 Hours Test 05/25/17 06:00 Medications Current Inpatient Medications Medications (Trade) Dose Ordered Sig/Marquez Route Start Time Stop Time Status Last Admin Dose Admin Ketorolac Tromethamine (Toradol Inj) 30 mg Q6H PRN IV. 05/25/17 02:00 05/30/17 01:59 Oxycodone/ Acetaminophen (Percocet 5-325mg Tab) 1 tab Q4H PRN PO 05/25/17 02:00 06/08/17 01:59 Oxycodone/ Acetaminophen (Percocet 5-325mg Tab) 2 tab Q4H PRN PO 05/25/17 02:00 06/08/17 01:59 Ibuprofen (Motrin Tab) 600 mg Q4H PRN PO 05/24/17 08:45 06/23/17 08:44 Ondansetron HCl (Zofran Inj) 4 mg Q4H PRN IV 05/25/17 02:00 06/24/17 01:59 Prenat Multivit/ [place]/Iron/Folic Ac ( Vitamin Tab) 1 tab DAILY PO 05/25/17 08:00 06/24/17 07:59 Bisacodyl (Dulcolax Tab) 5 mg HS ONCE PO 05/25/17 22:00 05/25/17 22:01 Bisacodyl (Dulcolax Supp) 10 mg PRN PRN [place] 05/26/17 08:45 06/25/17 08:44 Docusate Sodium (coLACE CAP) 100 mg BID PO 05/24/17 20:00 06/23/17 19:59 05/24/17 19:49 100 MG Magnesium Hydroxide (Milk Of Magnesia Susp) 30 ml HS PRN PO 05/24/17 08:45 06/23/17 08:44 Diphtheria/ Pertussis/Tetanus Vacc (Adacel Inj) 0.5 ml ONCE ONCE IM. 05/25/17 08:00 05/25/17 08:01 Cocaine HCl (Supercream 0.870% Cr) BID PRN EXT 05/24/17 08:45 06/07/17 08:44 Lanolin (Lanolin Oint) PRN PRN EXT 05/24/17 08:45 06/23/17 08:44 Hydrocortisone Acetate (Anusol Hc Supp) 25 mg BID PRN [place] 2/19/18 08:45 06/23/17 08:44 Benzocaine (Dermoplast Aero Spr) 1 appln PRN PRN EXT 05/24/17 08:45 06/23/17 08:44 Diphenhydramine HCl (Benadryl Cap) 25 mg QID PRN PO 05/24/17 08:45 06/23/17 08:44 Diphenhydramine HCl (Benadryl Inj) 25 mg QID PRN IV 05/24/17 08:45 06/23/17 08:44 Future hold Senna (Senokot Tab) 17.2 mg HS PRN PO 05/24/17 08:45 06/23/17 08:44 Ferrous Sulfate (Feosol Tab) 325 mg DAILY PO 05/25/17 08:00 06/24/17 07:59 Simethicone (Mylicon Chew Tab) 80 mg QID PO 05/24/17 17:00 06/23/17 16:59 05/24/17 19:49 80 MG Lactated Ringer's 1,000 ml @ 125 mls/hr Q8H IV 05/24/17 17:40 05/25/17 09:39 05/24/17 18:16 125 MLS/HR Assessment and Plan Problem List Medical Problems: (1) First trimester Status: Acute (2) Ovarian hyperstimulation syndrome Status: Acute (3) Pleural effusion Status: Acute (4) Pleurisy Status: Acute (5) Pleuritic chest pain Status: Acute (6) Pleuritic chest pain Status: Acute (7) Ruptured ectopic Status: Acute (8) Subchorionic hematoma in first trimester Status: Acute (9) Vaginal bleeding before 22 weeks gestation Status: Acute Post-Op Day#: 1 Continue Routine Care: 36 s/p elective repeat for dichorionic diamniotic twins and tubal ligation day 1 - B+, Rubella Immune, GBS -ve - pt doing well clinically - Vital Signs reviewed and WNL - Hemoglobin prior to C/S 11, will assess Hgb level when AM labs become available - advance diet as tolerated - pt heterozygous for Factor V Leiden - begin 40mg SQ daily of Lovenox for DVT prophylaxis - Encourage Ambulation, monitor and control pain - Encourage Breast Feeding Resident Physician Supervision Note: I interviewed and examined the patient. Discussed with Dr. Mathew and agree with findings and plan as documented in the note. Any exceptions or clarifications are listed here: Patient doing well, pod #1. PLan to start prophylactic lovenox today. Patient has no hx of clot but Hx of Factor V. Did not have hematology consult this , so I made plan for Lovenox based on hx of previous women. Routine pnc. Documented By: Tiana Barajas Resident Tracking Resident Involvement: Resident Care Provided Care Provided: OB Delivery
[2017-05-25] MEDS ORDERED: PRENATAL VITAMIN TAB PO SCH (08:00)
[2017-05-25] MEDS ORDERED: DIPHTHERIA/TETANUS/PERTUSSIS 0.5 ML SYR/VIAL IM. ONE (08:00)
[2017-05-25 08:12] LABS: BASO % 0.2 %; BASO ABS # 0.02 K/uL (0-0.2); EOS % 0.2 %; EOS ABS # 0.02 K/uL (0-0.5); HEMOGLOBIN 10.9 g/dL (12.0-16.0); IG# 0.03 K/uL (0.00-0.02); LYMPH % 19.3 %; LYMPH ABS # 2.06 K/uL (1.2-3.4); MEAN CELL VOLUME 91.7 fL (80-100); MEAN CORPUSCULAR HEMOGLOBIN 31.2 pg (25-34); MEAN CORPUSCULAR HGB CONC 34.1 g/dl (32-36); MEAN PLATELET VOLUME 10.8 fL (7.4-10.4); MONO % 4.1 %; MONO ABS # 0.44 K/uL (0.11-0.59); NEUT % 75.9 %; NEUT ABS # 8.09 K/uL (1.4-6.5); PLATELET COUNT 130 K/uL (130-400); RED CELL DISTRIBUTION WIDTH CV 14.8 % (11.5-14.5); RED CELL DISTRIBUTION WIDTH SD 49.5 fL (36.4-46.3); WHITE BLOOD COUNT 10.66 K/uL (4.8-10.8)
[2017-05-25 08:26] LABS: INR 0.9 (0.9-1.1); PTT PATIENT 26.4 SECONDS (21.0-31.0)
[2017-05-25] MEDS: DOCUSATE SODIUM 100 MG CAP PO SCH ×2 (08:36→20:14)
[2017-05-25 08:37] LABS: CREATININE 0.61 mg/dl (0.60-1.20)
[2017-05-25] MEDS: SIMETHICONE 80 MG CHEW PO SCH ×4 (08:38→20:14)
[2017-05-25] MEDS: FERROUS SULFATE 325 MG TAB PO SCH (08:38)
[2017-05-25] MEDS: PRENATAL VITAMIN TAB PO SCH (08:38)
[2017-05-25] MEDS: IBUPROFEN 600 MG TAB PO PRN ×3 (08:39→18:28)
[2017-05-25] MEDS: ENOXAPARIN 40 MG/0.4 ML SYR SQ SCH (09:40)
[2017-05-25] MEDS: MAGNESIUM HYDROXIDE SUSP 30 ML UDC PO PRN (10:27)
[2017-05-25] MEDS: OXYCODONE/ACETAMINOPHEN 5-325 TAB PO PRN ×2 (10:28→18:28)
[2017-05-25] MEDS ORDERED: BISACODYL 5 MG TABEC PO ONE (22:00)
[2017-05-26 00:50] VITALS: BP 127/77; PULSE 63; TEMP 36.8; O2SAT 99
[2017-05-26] MEDS: IBUPROFEN 600 MG TAB PO PRN ×4 (00:54→17:24)
[2017-05-26] MEDS: OXYCODONE/ACETAMINOPHEN 5-325 TAB PO PRN ×4 (00:55→20:10)
[2017-05-26] MEDS ORDERED: BISACODYL 10 MG SUPP PR PRN ×2 (06:45→08:45)
--- NOTE | 2017-05-26 06:51 | Progress Note ---
Subjective May 26, 2017. Subjective conversation w/ patient (Patient seen and examined at bedside) Ambulation: ambulating normally Voiding: no voiding problems Passing Gas: No Diet Tolerance: Clear Liquids Lochia: Moderate Feeding Type: Breast Feeding Pain: 7/10 with ambulation, confined to incision. Improved with analgesia Review of Systems Constitutional: No fever, No chills Respiratory: No shortness of breath Cardiac: No chest pain Abdomen: No nausea, No vomiting Female : No dysuria Objective Vital Signs Date Time Temp Pulse Resp B/P (MAP) Pulse Ox O2 Delivery O2 Flow Rate FiO2 05/26/17 00:50 99 Room Air 05/26/17 00:50 36.8 63 18 127/77 (94) 99 Room Air 05/25/17 15:30 Room Air 05/25/17 15:30 37.0 60 16 117/70 (86) Room Air 05/25/17 11:29 37.2 68 16 117/66 (83) 96 Room Air 05/25/17 10:20 97 Room Air 05/25/17 08:20 36.9 63 16 119/72 (88) 97 Room Air 05/25/17 07:20 Room Air Physical Exam General Appearance: WELL-APPEARING, WD/WN, NO APPARENT DISTRESS Respiratory/Chest: lungs clear, normal breath sounds Cardiovascular: regular rate, rhythm Abdomen: soft Fundus: Firm, Tender, Relation to Umbilicus (at u) Laboratory Results Last 24 Hours Test 05/25/17 07:53 05/26/17 06:00 White Blood Count 10.66 K/uL Red Blood Count 3.49 M/uL Hemoglobin 10.9 g/dL Hematocrit 32.0 % Mean Corpuscular Volume 91.7 fL Mean Corpuscular Hemoglobin 31.2 pg Mean Corpuscular Hemoglobin Concent 34.1 g/dl Platelet Count 130 K/uL Mean Platelet Volume 10.8 fL Neutrophils (%) (Auto) 75.9 % Lymphocytes (%) (Auto) 19.3 % Monocytes (%) (Auto) 4.1 % Eosinophils (%) (Auto) 0.2 % Basophils (%) (Auto) 0.2 % Neutrophils # (Auto) 8.09 K/uL Lymphocytes # (Auto) 2.06 K/uL Monocytes # (Auto) 0.44 K/uL Eosinophils # (Auto) 0.02 K/uL Basophils # (Auto) 0.02 K/uL RDW Standard Deviation 49.5 fL RDW Coefficient of Variation 14.8 % Immature Granulocyte % (Auto) 0.3 % Immature Granulocyte # (Auto) 0.03 K/uL Prothrombin Time 9.8 SECONDS Prothromb Time International Ratio 0.9 Activated Partial Thromboplast Time 26.4 SECONDS Partial Thromboplastin Ratio 1.0 Creatinine 0.61 mg/dl Est Creatinine Clear Calc Drug Dose 132.3 ml/min Estimated GFR () 136.1 Estimated GFR (Non- 117.5 Medications Current Inpatient Medications Medications (Trade) Dose Ordered Sig/Marquez Route Start Time Stop Time Status Last Admin Dose Admin Ketorolac Tromethamine (Toradol Inj) 30 mg Q6H PRN IV. 05/25/17 02:00 05/30/17 01:59 Oxycodone/ Acetaminophen (Percocet 5-325mg Tab) 1 tab Q4H PRN PO 05/25/17 02:00 06/08/17 01:59 05/26/17 00:55 1 TAB Oxycodone/ Acetaminophen (Percocet 5-325mg Tab) 2 tab Q4H PRN PO 05/25/17 02:00 06/08/17 01:59 Ibuprofen (Motrin Tab) 600 mg Q4H PRN PO 05/24/17 08:45 06/23/17 08:44 05/26/17 00:54 600 MG Ondansetron HCl (Zofran Inj) 4 mg Q4H PRN IV 05/25/17 02:00 06/24/17 01:59 Prenat Multivit/ [place]/Iron/Folic Ac ( Vitamin Tab) 1 tab DAILY PO 05/25/17 08:00 06/24/17 07:59 05/25/17 08:38 1 TAB Bisacodyl (Dulcolax Supp) 10 mg PRN PRN [place] 05/26/17 08:45 06/25/17 08:44 Docusate Sodium (coLACE CAP) 100 mg BID PO 05/24/17 20:00 06/23/17 19:59 05/25/17 20:14 100 MG Magnesium Hydroxide (Milk Of Magnesia Susp) 30 ml HS PRN PO 05/24/17 08:45 06/23/17 08:44 05/25/17 10:27 30 ML Cocaine HCl (Supercream 0.870% Cr) BID PRN EXT 05/24/17 08:45 06/07/17 08:44 Lanolin (Lanolin Oint) PRN PRN EXT 05/24/17 08:45 06/23/17 08:44 Hydrocortisone Acetate (Anusol Hc Supp) 25 mg BID PRN [place] 05/24/17 08:45 06/23/17 08:44 Benzocaine (Dermoplast Aero Spr) 1 appln PRN PRN EXT 05/24/17 08:45 06/23/17 08:44 Diphenhydramine HCl (Benadryl Cap) 25 mg QID PRN PO 05/24/17 08:45 06/23/17 08:44 Diphenhydramine HCl (Benadryl Inj) 25 mg QID PRN IV 05/24/17 08:45 06/23/17 08:44 Future hold Senna (Senokot Tab) 17.2 mg HS PRN PO 05/24/17 08:45 06/23/17 08:44 Ferrous Sulfate (Feosol Tab) 325 mg DAILY PO 05/25/17 08:00 06/24/17 07:59 05/25/17 08:38 325 MG Simethicone (Mylicon Chew Tab) 80 mg QID PO 05/24/17 17:00 06/23/17 16:59 05/25/17 20:14 80 MG Enoxaparin Sodium (Lovenox Inj) 40 mg QAM SQ 05/25/17 09:00 06/24/17 08:59 05/25/17 09:40 40 MG Assessment and Plan Problem List Medical Problems: (1) First trimester Status: Acute (2) Ovarian hyperstimulation syndrome Status: Acute (3) Pleural effusion Status: Acute (4) Pleurisy Status: Acute (5) Pleuritic chest pain Status: Acute (6) Pleuritic chest pain Status: Acute (7) Ruptured ectopic Status: Acute (8) Subchorionic hematoma in first trimester Status: Acute (9) Vaginal bleeding before 22 weeks gestation Status: Acute Post-Op Day#: 2 Continue Routine Care: 36 s/p elective repeat for dichorionic diamniotic twins and tubal ligation day 2 - B+, Rubella Immune, GBS -ve - Vital Signs reviewed and WNL - Hemoglobin stable - pt yet to pass gas - will monitor, add Dulcolax suppository, continue to encourage ambulation & advance diet as tolerated - pt heterozygous for Factor V Leiden - continue 40mg SQ daily of Lovenox for DVT prophylaxis - Monitor and control pain - Encourage Breast Feeding Resident Physician Supervision Note: I interviewed and examined the patient. Discussed with Dr. Dr. Mathew and agree with findings and plan as documented in the note. Any exceptions or clarifications are listed here: [None] Documented By: Josiah Goldberg Resident Tracking Resident Involvement: Resident Care Provided Care Provided: OB Delivery
[2017-05-26 07:30] VITALS: BP 132/62; PULSE 69; TEMP 36.8; O2SAT 98
[2017-05-26 07:45] LABS: HEMATOCRIT 29.8 % (37-47); HEMOGLOBIN 10.2 g/dL (12.0-16.0)
[2017-05-26] MEDS: PRENATAL VITAMIN TAB PO SCH (08:39)
[2017-05-26] MEDS: FERROUS SULFATE 325 MG TAB PO SCH (08:39)
[2017-05-26] MEDS: DOCUSATE SODIUM 100 MG CAP PO SCH ×2 (08:40→20:00)
[2017-05-26] MEDS: SIMETHICONE 80 MG CHEW PO SCH ×4 (08:42→20:09)
[2017-05-26] MEDS: ENOXAPARIN 40 MG/0.4 ML SYR SQ SCH (08:46)
[2017-05-26] MEDS: MAGNESIUM HYDROXIDE SUSP 30 ML UDC PO PRN (09:24)
[2017-05-26 17:10] VITALS: BP 123/73; PULSE 65; TEMP 37.3; O2SAT 99
[2017-05-26 23:10] VITALS: BP 119/69; PULSE 69; TEMP 37.1
[2017-05-27] MEDS: IBUPROFEN 600 MG TAB PO PRN ×2 (02:53→14:22)
[2017-05-27] MEDS: OXYCODONE/ACETAMINOPHEN 5-325 TAB PO PRN (02:53)
[2017-05-27] MEDS ORDERED: OXYC-57 PO (03:23)
[2017-05-27] MEDS ORDERED: MTR600X PO (03:23)
--- NOTE | 2017-05-27 06:29 | Progress Note ---
Subjective May 27, 2017. Subjective conversation w/ patient (patient seen and examined at bedside) Ambulation: ambulating normally Voiding: no voiding problems Passing Gas: Yes Diet Tolerance: Regular Diet Lochia: Moderate Feeding Type: Breast Feeding Pain: 4/10, improved with analgesia Review of Systems Constitutional: No fever, No chills Respiratory: No shortness of breath Cardiac: No chest pain Abdomen: No nausea, No vomiting Objective Vital Signs Date Time Temp Pulse Resp B/P (MAP) Pulse Ox O2 Delivery O2 Flow Rate FiO2 05/26/17 23:10 Room Air 05/26/17 23:10 37.1 69 16 119/69 (86) Room Air 05/26/17 17:10 Room Air 05/26/17 17:10 37.3 65 16 123/73 (90) 99 Room Air 05/26/17 07:30 36.8 69 132/62 (85) 98 Room Air 05/26/17 07:30 Room Air Physical Exam General Appearance: WELL-APPEARING, WD/WN, NO APPARENT DISTRESS Respiratory/Chest: lungs clear, normal breath sounds Cardiovascular: regular rate, rhythm Abdomen: soft Fundus: Firm, Non-Tender, Relation to Umbilicus (at u) Incision Description: Clean, Dry & Intact Extremities: no calf tenderness Laboratory Results Last 24 Hours Test 05/26/17 07:25 Hemoglobin 10.2 g/dL Hematocrit 29.8 % Medications Current Inpatient Medications Medications (Trade) Dose Ordered Sig/Marquez Route Start Time Stop Time Status Last Admin Dose Admin Ketorolac Tromethamine (Toradol Inj) 30 mg Q6H PRN IV. 05/25/17 02:00 05/30/17 01:59 Oxycodone/ Acetaminophen (Percocet 5-325mg Tab) 1 tab Q4H PRN PO 05/25/17 02:00 06/08/17 01:59 05/27/17 02:53 1 TAB Oxycodone/ Acetaminophen (Percocet 5-325mg Tab) 2 tab Q4H PRN PO 05/25/17 02:00 06/08/17 01:59 Ibuprofen (Motrin Tab) 600 mg Q4H PRN PO 05/24/17 08:45 06/23/17 08:44 05/27/17 02:53 600 MG Ondansetron HCl (Zofran Inj) 4 mg Q4H PRN IV 05/25/17 02:00 06/24/17 01:59 Prenat Multivit/ [facility] [place] [facility]/Iron/Folic Ac ( Vitamin Tab) 1 tab DAILY PO 05/25/17 08:00 06/24/17 07:59 05/26/17 08:39 1 TAB Bisacodyl (Dulcolax Supp) 10 mg PRN PRN [place] 05/26/17 08:45 06/25/17 08:44 05/26/17 07:32 10 MG Docusate Sodium (coLACE CAP) 100 mg BID PO 05/24/17 20:00 06/23/17 19:59 05/26/17 08:40 100 MG Magnesium Hydroxide (Milk Of Magnesia Susp) 30 ml HS PRN PO 05/24/17 08:45 06/23/17 08:44 05/26/17 09:24 30 ML Cocaine HCl (Supercream 0.870% Cr) BID PRN EXT 05/24/17 08:45 06/07/17 08:44 Lanolin (Lanolin Oint) PRN PRN EXT 05/24/17 08:45 06/23/17 08:44 Hydrocortisone Acetate (Anusol Hc Supp) 25 mg BID PRN [place] 05/24/17 08:45 06/23/17 08:44 Benzocaine (Dermoplast Aero Spr) 1 appln PRN PRN EXT 05/24/17 08:45 06/23/17 08:44 Diphenhydramine HCl (Benadryl Cap) 25 mg QID PRN PO 05/24/17 08:45 06/23/17 08:44 Diphenhydramine HCl (Benadryl Inj) 25 mg QID PRN IV 05/24/17 08:45 06/23/17 08:44 Future hold Senna (Senokot Tab) 17.2 mg HS PRN PO 05/24/17 08:45 06/23/17 08:44 Ferrous Sulfate (Feosol Tab) 325 mg DAILY PO 05/25/17 08:00 06/24/17 07:59 05/26/17 08:39 325 MG Simethicone (Mylicon Chew Tab) 80 mg QID PO 05/24/17 17:00 06/23/17 16:59 2/21/18 20:09 80 MG Enoxaparin Sodium (Lovenox Inj) 40 mg QAM SQ 05/25/17 09:00 06/24/17 08:59 05/26/17 08:46 40 MG Bisacodyl (Dulcolax Supp) 10 mg DAILY PRN [place] 05/26/17 06:45 06/25/17 06:44 Assessment and Plan Problem List Medical Problems: (1) First trimester Status: Acute (2) Ovarian hyperstimulation syndrome Status: Acute (3) Pleural effusion Status: Acute (4) Pleurisy Status: Acute (5) Pleuritic chest pain Status: Acute (6) Pleuritic chest pain Status: Acute (7) Ruptured ectopic Status: Acute (8) Subchorionic hematoma in first trimester Status: Acute (9) Vaginal bleeding before 22 weeks gestation Status: Acute Post-Op Day#: 3 Continue Routine Care: Resident Physician Supervision Note: I was present with Dr. Mathew during the history and exam. I discussed the case with the resident and agree with the findings and plan as documented in the note. Any exceptions or clarifications are listed here: [None] Documented By: Joy Gonsales 35 s/p elective repeat for dichorionic diamniotic twins and tubal ligation day 2 - B+, Rubella Immune, GBS -ve - Vital Signs reviewed and WNL - Hemoglobin stable - pt heterozygous for Factor V Leiden - continue 40mg SQ daily of Lovenox for DVT prophylaxis - Monitor and control pain - pt doing well - tolerating regular diet without problems and having BMs - pt ready for d/c today - will review discharge instructions Resident Tracking Resident Involvement: Resident Care Provided Care Provided: OB Delivery
[2017-05-27] MEDS: DOCUSATE SODIUM 100 MG CAP PO SCH ×2 (08:33→08:35)
[2017-05-27] MEDS: PRENATAL VITAMIN TAB PO SCH (08:33)
[2017-05-27] MEDS: FERROUS SULFATE 325 MG TAB PO SCH (08:33)
[2017-05-27] MEDS: SIMETHICONE 80 MG CHEW PO SCH ×3 (08:34→17:00)
[2017-05-27] MEDS: ENOXAPARIN 40 MG/0.4 ML SYR SQ SCH (08:53)
[2017-05-27 15:35] VITALS: BP 119/61; PULSE 68; TEMP 37.1; O2SAT 98
[2017-05-27 19:51] VITALS: BP_DIAS 61; PULSE 68; TEMP 37.1
== END 2017-05-27 18:43 | disposition home or self-care (01) | DRG 765 ==
LOC: C.LD 05:28 → EDSTATUS 09:00 → C.OBG 12:10
PROVIDERS: ADMIT Obstetrics & Gynecology; ATTEND Obstetrics & Gynecology
PROC: 0U5 Female Reproductive System, Destruction (ICD-10-PCS; principal; 2017-05-24 07:30)
PROC: 10D00Z1 Extraction of Products of Conception, Low, Open Approach (ICD-10-PCS; principal; 2017-05-24 07:30)
DX: O30.003 Twin pregnancy, unspecified number of placenta and unspecified number of amniotic sacs, third trimester (principal); D68.51 Activated protein C resistance; O99.113 Other diseases of the blood and blood-forming organs and certain disorders involving the immune mechanism complicating pregnancy, third trimester; O09.523 Supervision of elderly multigravida, third trimester; O34.219 Maternal care for unspecified type scar from previous cesarean delivery; Z37.2 Twins, both liveborn; Z3A.38 38 weeks gestation of pregnancy